=== PATIENT | female | born 1940 | race Caucasian/White ===

== ENCOUNTER 2016-09-08 14:26 | Observation (INO) | payer MEDICARE, OTHER ==
--- NOTE | 2016-09-08 15:06 | C.PDOC ---
History Of Present Illness 75 year old female brought in by family to ER with a complaint of nausea, vomiting, headache, abdominal pain and chest pressure since approximately 14: 00. Patient states symptoms feels similar to when she had an [facility] in January 2016. She denies SOB, fever, cough, palpitations, or diarrhea. Time Seen by Provider: 09/08/16 14:46 Chief Complaint (Nursing): Abdominal Pain History Per: Patient, Family History/Exam Limitations: no limitations Onset/Duration Of Symptoms: Hrs (Since 14:00) Current Symptoms Are (Timing): Better Severity: Moderate Location Of Pain/Discomfort: Other (Abdominal pain) Quality Of Discomfort: "Pain" Associated Symptoms: Nausea, Vomiting, Diarrhea Past Medical History Reviewed: Historical Data, Nursing Documentation, Vital Signs Vital Signs: Last Vital Signs Temp 98.3 F 09/11/16 08:35 Pulse 65 09/11/16 08:46 Resp 20 09/11/16 08:35 BP 127/70 09/11/16 08:35 Pulse Ox 99 09/14/16 10:52 - Medical History PMH: Anemia, Arthritis, Dementia, HTN, Hypercholesterolemia Surgical History: [facility] CORONAR ARTERIOGR-2 CATH (02/10/15) INSERTION OF ONE VASCULAR STENT (02/10/15) INSRT OF DRUG-ELUTING CORON ARTERY STENTS(S) (02/10/15) LEFT HEART CARDIAC CATH (02/10/15) LT HEART ANGIOCARDIOGRAM (02/10/15) PERCUTANEOUS TRANSLUMINAL CORONARY ANGIOPLASTY [PTCA] (02/10/15) PROCEDURE ON SINGLE VESSEL (02/10/15) Family History: States: No Known Family Hx - Social History Hx Alcohol Use: No Hx Substance Use: No - Immunization History Hx Tetanus Toxoid Vaccination: (unk) Hx Influenza Vaccination: No Hx Pneumococcal Vaccination: Yes Review Of Systems Except As Marked, All Systems Reviewed And Found Negative. Cardiovascular: Positive for: Chest Pain (Pressure). Negative for: Palpitations Respiratory: Negative for: Cough, Shortness of Breath Gastrointestinal: Positive for: Nausea, Vomiting, Other (Abdominal Pain) Neurological: Positive for: Headache Physical Exam - Physical Exam Appears: Non-toxic, Other (Mildly uncomfortable, speaking in full sentences.) Skin: Normal Color, Warm, Dry, No Rash Head: Normacephalic Oral Mucosa: Moist Chest: Symmetrical, No Tenderness Cardiovascular: Rhythm Regular Respiratory: Normal Breath Sounds, No Rales, No Rhonchi, Wheezing Gastrointestinal/Abdominal: Normal Exam, Bowel Sounds, Soft, No Tenderness Neurological/Psych: Oriented x3, Normal Speech, Normal Cognition, Normal Cranial Nerves, No Cerebellar Signs, Normal Motor, Normal Sensation ED Course And Treatment - Laboratory Results Result Diagrams: 09/11/16 06:30 09/11/16 06:47 ECG: Interpreted By Me, Viewed By Me (NSR 64 bpm, left axis deication, occasional PVCs, no acute ST/T wave changes) ECG Interpretation: No Acute Changes Interpretation Of ECG: Left axis deviation, Occasional PVCs, no acute ST/T wave changes. Rate From EC O2 Sat by Pulse Oximetry: 99 (Room air) Pulse Ox Interpretation: Normal - Radiology CXR: Interpreted by Me, Viewed By Me (no infiltrates/effusions) Progress Note: Blood work, EKG, and CXR ordered and reviewed. Patient given PO ASA. - Physician Consult Information Physician Contacted: Trent Britton Outcome Of Conversation: Spoke with hospitalist, agrees with admission to his service for chest pain, nausea/vomiting, r/o ACS. Consult for patient's group president Dr. Joe entered. Disposition - Disposition Disposition: HOSPITALIZED Disposition Time: 16:38 Condition: STABLE - Clinical Impression Clinical Impression: Chest pain, Nausea, Vomiting - Scribe Statement The provider has reviewed the documentation as recorded by the Scribpam Holcomb All medical record entries made by the Scribe were at my direction and personally dictated by me. I have reviewed the chart and agree that the record accurately reflects my personal performance of the history, physical exam, medical decision making, and the department course for this patient. I have also personally directed, reviewed, and agree with the discharge instructions and disposition. Decision To Admit - Pt Status Changed To: Hospital Disposition Of: Inpatient - Admit Certification Admit to Inpatient:: After my assessment, the patient will require hospitalization for at least two midnights. This is because of the severity of symptoms shown, intensity of services needed, and/or the medical risk in this patient being treated as an outpatient. - InPatient: Physician Admission Certification:: see notes - . Bed Request Type: Telemetry Admitting Physician: Trent Britton Patient Diagnosis: Chest pain, Nausea, Vomiting
[2016-09-08 15:16] LABS: BASO % 0.5 % (0.0-2.0); EOS # 0.1 K/uL (0.0-0.7); EOS % 1.4 % (0.0-4.0); HEMATOCRIT 34.4 % (34.0-47.0); LYMPH # 0.8 K/uL (1.0-4.3); LYMPH % 13.4 % (20.0-40.0); MEAN CORPUSCULAR HEMOGLOBIN 26.6 pg (27.0-31.0); MEAN CORPUSCULAR HGB CONC 32.1 g/dL (33.0-37.0); MEAN PLATELET VOLUME 7.8 fL (7.2-11.7); MONO # 0.3 K/uL (0.0-0.8); RED CELL DISTRIBUTION WIDTH 15.9 % (11.5-14.5); WHITE BLOOD COUNT 6.3 K/uL (4.8-10.8)
[2016-09-08 15:18] LABS: MEAN CELL VOLUME 82.7 fL (81.0-99.0)
[2016-09-08 15:24] LABS: CHLORIDE 101 mmol/L (98-107)
[2016-09-08 15:25] LABS: SODIUM 138 mmol/L (132-148)
[2016-09-08 15:27] LABS: ALB/GLOB RATIO 1.3 (1.0-2.1); AST/SGOT 25 U/L (14-36); BILIRUBIN,TOTAL 0.3 mg/dL (0.2-1.3); CARBON DIOXIDE 24 mmol/L (22-30); GFR AFRICAN-AMERICAN > 60; TOTAL PROTEIN 7.1 g/dL (6.3-8.3)
[2016-09-08 15:28] LABS: ALKALINE PHOSPHATASE 92 U/L (38-126); BLOOD UREA NITROGEN 14 mg/dL (7-17); CALCIUM 8.4 mg/dl (8.6-10.4); GLUCOSE,RANDOM 96 mg/dL (65-105)
[2016-09-08 15:29] LABS: ALT/SGPT < 6 U/L (9-52)
--- NOTE | 2016-09-08 17:36 | RAD ---
PROCEDURE: CHEST RADIOGRAPH, 1 VIEW HISTORY: cp COMPARISON: 11/21/2015 FINDINGS: LUNGS: Poor inspiration with low lung volumes, crowded bronchovascular markings and mild bibasilar atelectasis. PLEURA: No pneumothorax or pleural fluid seen. CARDIOVASCULAR: Questionable calcification over the left cardiac silhouette. Cardiomegaly. OSSEOUS STRUCTURES: DJD both shoulder girdles. Degenerative spondylosis lower cervical spine VISUALIZED UPPER ABDOMEN: Normal. OTHER FINDINGS: None. IMPRESSION: Poor inspiration with low lung volumes, 1st the the the the crowded bronchovascular markings and mild bibasilar atelectasis.
--- NOTE | 2016-09-08 17:44 | CP.PCM.HP ---
<Angy Burnett - Last Filed: 09/08/16 18:14> History of Present Illness - History of Present Illness History of Present Illness: CC - "Chest pain now resolved" HPI - Patient is a 75 year old female brought in by family to ER with a complaint of nausea, vomiting, headache, abdominal pain and chest pressure since approximately 14:00. She states that it started around 2 PM while she was cleaning in her house. She reports that this pain was midsternal 8/10 radiating to her neck. She admits to associated nausea and vomiting one time that was dark because she was drinking coffee. She states that it resolved in about an hour after she arrived to the ED. She took Aspirin 81 mg at home for the pain which is one of her daily medications. She reports having an KS in January [address] Joe put in a stent. Her last visit with him was 3 weeks ago and she reports everything was "fine". She admits to a headache for the past few days but denies visual changes. She denies fever chills, palpitations, SOB, abd pain, diarrhea, constipation, urinary complaints, weakness/numbness, or dizziness. She can walk up 2 flights of stairs without getting SOB and does not use any extra pillows while sleeping. PMHx - KS (Jan 2015), Anemia, Arthritis, Dementia, HTN, HLD Meds - Aspirin 81 mg PO daily Plavix 75 mg PO daily Metoprolol 25 mg PO daily Amlodipine 10mg PO daily Crestor 10 mg PO HS Donepezil 10mg PO daily Meloxicam 15mg PO daily Lyrica 25mg PO TID alendronate 70 mg PO weekly at home Tradozone 50mg PO HS Protonix 40mg PO daily Tizanidine 2mg PO daily Vitamin D 1.25 mg PO weekly [place] 3 two PO daily Allergies - NKDA Surg - Csection Fam Hx - mother had KS, no hisotry of DM, stroke or cancer Social - used to smokes since a young age and used 3-4 cigarettes a day, quit 3 years ago, admits to occasional alcohol use, denies drug use, lives at home with her daughter and son in law PMD - [employer] - Heath Present on Admission - Present on Admission Any Indicators Present on Admission: No Review of Systems - Constitutional Constitutional: Headache. absent: Chills, Fever, Weakness - EENT Eyes: absent: Blurred Vision, Change in Vision Ears: Dizziness Nose/Mouth/Throat: absent: Nasal Congestion, Nasal Discharge - Cardiovascular Cardiovascular: Chest Pain, Chest Pain at Rest, Pain Radiating to Arm/Neck/Jaw. absent: Diaphoresis, Leg Edema, Palpitations, Syncope Additional comments: have resolved, non reproducible - Respiratory Respiratory: absent: Cough, Dyspnea, Dyspnea on Exertion - Gastrointestinal Gastrointestinal: Nausea, Vomiting. absent: Abdominal Pain Additional comments: x 1, resolved - Genitourinary Genitourinary: absent: Change in Urinary Stream, Difficulty Urinating - Musculoskeletal Musculoskeletal: Arthralgias, Deformity. absent: Numbness, Tingling Additional comments: joints in hands Past Patient History - Infectious Disease Hx of Infectious Diseases: None - Past Medical History & Family History Past Medical History?: Yes - Past Social History Smoking Status: Former Smoker - CARDIAC Hx Hypercholesterolemia: Yes Hx Hypertension: Yes - PULMONARY Hx Respiratory Disorders: No - NEUROLOGICAL Hx Dementia: Yes - HEENT Hx Cataracts: Yes - RENAL Hx Chronic Kidney Disease: No - ENDOCRINE/METABOLIC Hx Endocrine Disorders: No - HEMATOLOGICAL/ONCOLOGICAL Hx Anemia: Yes - INTEGUMENTARY Hx Dermatological Problems: No - MUSCULOSKELETAL/RHEUMATOLOGICAL Hx Arthritis: Yes - GASTROINTESTINAL Hx Gastrointestinal Disorders: Yes Hx Gastroesophageal Reflux: Yes - GENITOURINARY/GYNECOLOGICAL Hx Genitourinary Disorders: No - PSYCHIATRIC Hx Substance Use: No - SURGICAL HISTORY Hx Coronary Stent: Yes (proximal RCA 2006) - ANESTHESIA Hx Anesthesia: Yes Hx Anesthesia Reactions: No Hx Malignant Hyperthermia: No Meds Allergies/Adverse Reactions: Allergies Allergy/AdvReac Type Severity Reaction Status Date / Time No Known Allergies Allergy Verified 11/21/15 15:38 Physical Exam - Constitutional Appears: Non-toxic, No Acute Distress - Head Exam Head Exam: ATRAUMATIC, NORMAL INSPECTION - Eye Exam Eye Exam: EOMI, Normal appearance, PERRL Pupil Exam: NORMAL ACCOMODATION - ENT Exam ENT Exam: Mucous Membranes Moist - Respiratory Exam Respiratory Exam: Clear to Auscultation Bilateral, NORMAL BREATHING PATTERN. absent: Accessory Muscle Use, Chest Wall Tenderness, Respiratory Distress - Cardiovascular Exam Cardiovascular Exam: REGULAR RHYTHM, +S1, +S2. absent: Diastolic murmur, Systolic Murmur Additional comments: non reproducible, has resolved - GI/Abdominal Exam GI & Abdominal Exam: Normal Bowel Sounds, Soft. absent: Distended, Firm, Guarding, Tenderness - Extremities Exam Extremities exam: Positive for: joint swelling, normal inspection, pedal pulses present. Negative for: calf tenderness, pedal edema Additional comments: arthritic changes in finger joints b/l - Back Exam Back exam: NORMAL INSPECTION. absent: CVA tenderness (L), CVA tenderness (R), paraspinal tenderness - Neurological Exam Neurological exam: Alert, CN II-XII Intact, Oriented x3 - Psychiatric Exam Psychiatric exam: Normal Affect, Normal Mood - Skin Skin Exam: Intact, Normal Color, Warm Results - Vital Signs Recent Vital Signs: Last Vital Signs Temp 97.7 F 09/08/16 14:39 Pulse 67 09/08/16 14:39 Resp 14 09/08/16 15:18 BP 147/72 09/08/16 14:39 Pulse Ox 99 09/08/16 16:42 - Labs Result Diagrams: 09/08/16 15:12 09/08/16 15:12 Assessment & Plan - Assessment and Plan (Free Text) Assessment: Angina rule out M/I - previous KS In January of 2015 with stenet placement in RCA by Dr. Joe Aspirin 81 mg PO daily Plavix 75 mg PO daily Metoprolol 25 mg PO daily Trop #1 negative, monitor with serial troponins and EKGs EKG NSR with left axis deviation, occasional PVCS, no acute changes Chest X ray - cardiomegaly, no acitve diease but poor inspiration with low lung volumes, mild bibasilar atelectasis Dr. Joe consulted, help appreciated BNP 715 f/u Echo f/u am labs, HbA1c, TSH, lipid panel Hypertension Controlled Amlodipine 10mg PO daily Metoprolol 25 mg PO daily Monitor BP Hyperlipidemia Crestor 10 mg PO HS f/u lipid panel Hx Anemia Chronic Hgb 11.0 Monitor Dementia Continue Donepezil 10mg PO daily Arthritis Continue Meloxicam 15mg PO daily Lyrica 25mg PO TID On alendronate 70 mg PO weekly at home Insomnia Tradozone 50mg PO HS Prophylactic Measures Protonix 40mg PO daily SCDs Lovenox 40mg SC daily Heart healthy low sodium diet <Trent Britton H - Last Filed: 09/09/16 11:10> Results - Vital Signs Recent Vital Signs: Last Vital Signs Temp 98 F 09/09/16 10:12 Pulse 62 09/09/16 10:12 Resp 18 09/09/16 10:12 BP 136/65 09/09/16 10:12 Pulse Ox 97 09/09/16 10:12 - Labs Result Diagrams: 09/09/16 07:56 09/09/16 07:56 Labs: Laboratory Results - last 24 hr 09/09/16 09/09/16 00:18 07:56 WBC 5.4 RBC 4.23 Hgb 11.3 Hct 35.5 MCV 83.9 MCH 26.6 L MCHC 31.8 L RDW 16.2 H Plt Count 264 MPV 8.5 Neut % (Auto) 62.6 Lymph % (Auto) 25.5 [place] % (Auto) 8.2 Eos % (Auto) 2.9 Baso % (Auto) 0.8 Neut # 3.4 Lymph # 1.4 [place] # 0.4 Eos # 0.2 Baso # 0.0 Sodium 141 Potassium 3.9 Chloride 103 Carbon Dioxide 24 Anion Gap 18 BUN 15 Creatinine 0.9 Est GFR ( Amer) > 60 Est GFR (Non-Af Amer) > 60 Random Glucose 90 Calcium 8.5 L Phosphorus 3.9 Magnesium 2.0 Total Bilirubin 0.1 L AST 22 ALT < 6 L Alkaline Phosphatase 85 Total Creatine Kinase 105 91 CK-MB (Mass) 0.77 0.69 Troponin I, Quant < 0.0120 < 0.0120 Total Protein 6.8 Albumin 3.8 Globulin 3.1 Albumin/Globulin Ratio 1.2 Triglycerides 170 H D Cholesterol 129 LDL Cholesterol Direct 49 HDL Cholesterol 48 Free T4 1.18 TSH 3rd Generation 1.37 Attending/Attestation - Attestation I have personally seen and examined this patient.: Yes I have fully participated in the care of the patient.: Yes I have reviewed all pertinent clinical information: Yes Notes (Text): Medical Attending: Patient was seen in the ER with medical surgery nurse. Agree with the above note by the resident. The patient does have a cardiac history and is on plavix as well as statin and HTN medications. Family members were present at bedside as well. Will check further cardiac enzymes as well as repeat EKG, also an order for an echo as well. Also cardiology evaluation as well. Patient does seem to have some dementia as well, family was helping with translation and answering questions as well.
[2016-09-09 08:08] LABS: BASO % 0.8 % (0.0-2.0); EOS # 0.2 K/uL (0.0-0.7); EOS % 2.9 % (0.0-4.0); HEMATOCRIT 35.5 % (34.0-47.0); LYMPH # 1.4 K/uL (1.0-4.3); LYMPH % 25.5 % (20.0-40.0); MEAN CELL VOLUME 83.9 fL (81.0-99.0); MEAN CORPUSCULAR HEMOGLOBIN 26.6 pg (27.0-31.0); MEAN CORPUSCULAR HGB CONC 31.8 g/dL (33.0-37.0); MEAN PLATELET VOLUME 8.5 fL (7.2-11.7); MONO # 0.4 K/uL (0.0-0.8); MONO % 8.2 % (0.0-10.0); RED CELL DISTRIBUTION WIDTH 16.2 % (11.5-14.5); WHITE BLOOD COUNT 5.4 K/uL (4.8-10.8)
[2016-09-09 08:17] LABS: CHLORIDE 103 mmol/L (98-107)
[2016-09-09 08:18] LABS: POTASSIUM 3.9 mmol/L (3.6-5.2); SODIUM 141 mmol/L (132-148)
[2016-09-09 08:19] LABS: CHOLESTEROL 129 mg/dL (0-199); GFR AFRICAN-AMERICAN > 60
[2016-09-09 08:20] LABS: ALB/GLOB RATIO 1.2 (1.0-2.1); ALKALINE PHOSPHATASE 85 U/L (38-126); AST/SGOT 22 U/L (14-36); BILIRUBIN,TOTAL 0.1 mg/dL (0.2-1.3); BLOOD UREA NITROGEN 15 mg/dL (7-17); CARBON DIOXIDE 24 mmol/L (22-30); GLUCOSE,RANDOM 90 mg/dL (65-105); TOTAL PROTEIN 6.8 g/dL (6.3-8.3)
[2016-09-09 08:21] LABS: CALCIUM 8.5 mg/dl (8.6-10.4); PHOSPHOROUS 3.9 mg/dL (2.5-4.5)
[2016-09-09 08:26] LABS: ALT/SGPT < 6 U/L (9-52)
[2016-09-09 09:32] LABS: THYROID STIMULATING HORMONE 1.37 mIU/L (0.46-4.68)
[2016-09-09] MEDS ORDERED: TIMOLOL OP SCH (10:00)
[2016-09-09] MEDS ORDERED: BRIMONIDINE TARTRATE OP SCH (10:00)
[2016-09-09] MEDS ORDERED: Home Med 1 UNIT (Omeprazole [Omeprazole] 40 MG) PO SCH (10:00)
[2016-09-09] MEDS ORDERED: Home Med 1 UNIT (Alendronate [Fosamax] 70 MG) PO SCH (10:00)
[2016-09-09] MEDS ORDERED: Home Med 1 UNIT (Meloxicam [Mobic] 15 MG) PO SCH (10:00)
[2016-09-09] MEDS ORDERED: Home Med 1 UNIT (Tizanidine [Zanaflex] 2 MG) PO SCH (10:00)
[2016-09-09] MEDS ORDERED: Enoxaparin 40 mg Syringe SC SCH (10:00)
[2016-09-09] MEDS: Metoprolol Succinate 25 mg XL Tab PO SCH (10:14)
--- NOTE | 2016-09-09 11:31 | CP.PCM.CON ---
History of Present Illness - History of Present Illness History of Present Illness: I was asked to see patient by the hospitalist service. Patient is a 75 year old male female with a PMH HTN, CAD s/p LA and PCI RCA, hypercholeterolemia, anemia who presents with chest pain. The patient states symptoms began yesterday at 2pm. She was noted to have substernal chest pressure and burning. Symptoms were intermittent. The patient had associated abdominal pain and nausea. The patient denies chest coombs currently. Cardiac enzymes have been negative. Review of Systems - Constitutional Constitutional: absent: As Per HPI, Anorexia, Chills, Daytime Sleepiness, Excessive Sweating, Fatigue, Fever, Frequent Falls, Headache, Increased Appetite , Lethargy, Malaise, Night Sweats, Snoring, Sleep Apnea, Weight Gain, Weight Loss, Weakness, Other - EENT Eyes: absent: As Per HPI, Blind Spots, Blurred Vision, Change in Vision, Decreased Night Vision, Diplopia, Discharge, Dry Eye, Exophthalmos, Floaters, Irritation, Itchy Eyes, Loss of Peripheral Vision, Pain, Photophobia, Requires Corrective Lenses, Sees Flashes, Spots in Vision, Tunnel Vision, Other Visual Disturbances, Loss of Vision, Other Ears: absent: As Per HPI, Decreased Hearing, Ear Discharge, Ear Pain, Tinnitus, Abnormal Hearing, Disequilibrium, Dizziness, Other Nose/Mouth/Throat: absent: As Per HPI, Epistaxis, Nasal Congestion, Nasal Discharge, Nasal Obstruction, Nasal Trauma, Nose Pain, Post Nasal Drip, Sinus Pain, Sinus Pressure, Bleeding Gums, Change in Voice, Dental Pain, Dry Mouth, Dysphagia, Halitosis, Hoarsness, Lip Swelling, Mouth Lesions, Mouth Pain, Odynophagia, Sore Throat, Throat Swelling, Tongue Swelling, Facial Pain, Neck Pain, Neck Mass, Other - Breasts Breasts: absent: As Per HPI, Change in Shape, Mass, Pain, Nipple Discharge, Nipple Inversion, Skin Changes, Swelling, Other - Cardiovascular Cardiovascular: Chest Pain, Dyspnea - Respiratory Respiratory: absent: As Per HPI, Cough, Dyspnea, Hemoptysis, Dyspnea on Exertion , Wheezing, Snoring, Stridor, Pain on Inspiration, Chest Congestion, Excessive Mucous Production, Change in Mucous Color, Pain with Coughing, Other - Gastrointestinal Gastrointestinal: Abdominal Pain - Genitourinary Genitourinary: absent: As Per HPI, Change in Urinary Stream, Difficulty Urinating, Dysuria, Flank Pain, Hematuria, Pyuria, Nocturia, Urinary Incontinence, Urinary Frequency, Urinary Hesitance, Urinary Urgency, Voiding Freq/Small Amts, Freq UTI, Hx Renal/Bladder Calculi, Hx /Renal Surgery, Bladder Distension, Other - Musculoskeletal Musculoskeletal: absent: As Per HPI, Abnormal Gait, Arthralgias, Atrophy, Back Pain, Deformity, Joint Swelling, Limited Range of Motion, Loss of Height, Muscle Cramps, Muscle Weakness, Myalgias, Neck Pain, Numbness, Radiating Pain into Limb, Stiffness, Tingling, Other - Integumentary Integumentary: absent: As Per HPI, Acne, Alopecia, Bleeding Lesions, Change in Hair, Change in Nails, Change in Pigmentation, Changing Lesions, Dry Skin, Erythema, Furuncle, Hirsutism, Lesions, New Lesions, Non-Healing Lesions, Photosensitivity, Pruritus, Rash, Skin Pain, Skin Ulcer, Sores, Striae, Swelling , Unusual Bruising, Wounds, Jaundice, Other - Neurological Neurological: absent: As Per HPI, Abnormal Gait, Abnormal Hearing, Abnormal Movements, Abnormal Speech, Behavioral Changes, Burning Sensations, Confusion, Convulsions, Disequilibrium, Dizziness, Numbness, Focal Weakness, Frequent Falls , Headaches, Lack of Coordination, Loss of Vision, Memory Loss, Paresthesias, Radicular Pain, Restless Legs, Sensory Deficit, Syncope, Tingling, Tremor, Vertigo, Weakness, Other Visual Disturbances, Other - Psychiatric Psychiatric: absent: As Per HPI, Abnormal Sleep Pattern, Anhedonia, Anxiety, Auditory Hallucinations, Behavioral Changes, Change in Appetite, Change in Libido, Confusion, Depression, Difficulty Concentrating, Hallucinations, Homicidal Ideation, Hopelessness, Irritability, Memory Loss, Mood Swings, Panic Attacks, Paranoia, Suicidal Ideation, Visual Hallucinations, Tactile Hallucinations, Other - Endocrine Endocrine: absent: As Per HPI, Change in Body Appearance, Change in Libido, Cold Intolorance, Deepening of Voice, Excessive Sweating, Fatigue, Flushing, Heat Intolorance, Increase in Ring/Shoe/Hat Size, Palpitations, Polydipsia, Polyphagia, Polyuria, Other - Hematologic/Lymphatic Hematologic: absent: As Per HPI, Easy Bleeding, Easy Bruising, Lymphadenopathy, Other Past Patient History - Infectious Disease Hx of Infectious Diseases: None - Past Medical History & Family History Past Medical History?: Yes - Past Social History Smoking Status: Former Smoker - CARDIAC Hx Hypercholesterolemia: Yes Hx Hypertension: Yes - PULMONARY Hx Respiratory Disorders: No - NEUROLOGICAL Hx Dementia: Yes - HEENT Hx Cataracts: Yes - RENAL Hx Chronic Kidney Disease: No - ENDOCRINE/METABOLIC Hx Endocrine Disorders: No - HEMATOLOGICAL/ONCOLOGICAL Hx Anemia: Yes - INTEGUMENTARY Hx Dermatological Problems: No - MUSCULOSKELETAL/RHEUMATOLOGICAL Hx Arthritis: Yes Hx Falls: No - GASTROINTESTINAL Hx Gastrointestinal Disorders: Yes Hx Gastroesophageal Reflux: Yes - GENITOURINARY/GYNECOLOGICAL Hx Genitourinary Disorders: No - PSYCHIATRIC Hx Substance Use: No - SURGICAL HISTORY Hx Surgeries: Yes Hx Coronary Stent: Yes (proximal RCA 2006) - ANESTHESIA Hx Anesthesia: Yes Hx Anesthesia Reactions: No Hx Malignant Hyperthermia: No Meds Allergies/Adverse Reactions: Allergies Allergy/AdvReac Type Severity Reaction Status Date / Time No Known Allergies Allergy Verified 11/21/15 15:38 - Medications Medications: Current Medications Acetaminophen (Tylenol 325mg Tab) 650 mg PO Q6 PRN PRN Reason: Headache Last Admin: 09/08/16 20:55 Dose: 650 mg Amlodipine Besylate (Norvasc) 10 mg PO DAILY [facility] Last Admin: 09/09/16 10:14 Dose: 10 mg Aspirin (Aspirin Chewable) 81 mg PO DAILY [facility] Last Admin: 09/09/16 10:14 Dose: 81 mg Clopidogrel Bisulfate (Plavix) 75 mg PO DAILY [facility] Last Admin: 09/09/16 10:14 Dose: 75 mg Donepezil HCl (Aricept) 10 mg PO DAILY [facility] Last Admin: 09/09/16 10:14 Dose: 10 mg Famotidine (Pepcid) 20 mg PO DAILY [facility] Last Admin: 09/09/16 10:14 Dose: 20 mg Metoprolol Succinate (Toprol Xl) 25 mg PO DAILY [facility] Last Admin: 09/09/16 10:14 Dose: 25 mg Pregabalin (Lyrica) 25 mg PO DAILY [facility] Last Admin: 09/09/16 10:14 Dose: 25 mg Rosuvastatin Calcium (Crestor) 10 mg PO [facility] Last Admin: 09/08/16 21:50 Dose: 10 mg Trazodone HCl (Desyrel) 50 mg PO [facility] Last Admin: 09/08/16 21:50 Dose: 50 mg Physical Exam - Constitutional Appears: Non-toxic - Head Exam Head Exam: NORMAL INSPECTION - Eye Exam Eye Exam: Normal appearance - ENT Exam ENT Exam: Mucous Membranes Moist - Neck Exam Neck exam: Positive for: Full Rom - Respiratory Exam Respiratory Exam: NORMAL BREATHING PATTERN - Cardiovascular Exam Cardiovascular Exam: REGULAR RHYTHM - GI/Abdominal Exam GI & Abdominal Exam: Normal Bowel Sounds - Rectal Exam Rectal Exam: Deferred - Extremities Exam Extremities exam: Positive for: pedal edema - Back Exam Back exam: NORMAL INSPECTION - Neurological Exam Neurological exam: Alert, Oriented x3 - Psychiatric Exam Psychiatric exam: Normal Affect - Skin Skin Exam: Normal Color Results - Vital Signs Recent Vital Signs: Last Vital Signs Temp 98 F 09/09/16 10:12 Pulse 62 09/09/16 10:12 Resp 18 09/09/16 10:12 BP 136/65 09/09/16 10:12 Pulse Ox 97 09/09/16 10:12 - Labs Result Diagrams: 09/09/16 07:56 09/09/16 07:56 Labs: Laboratory Results - last 24 hr 09/09/16 09/09/16 00:18 07:56 WBC 5.4 RBC 4.23 Hgb 11.3 Hct 35.5 MCV 83.9 MCH 26.6 L MCHC 31.8 L RDW 16.2 H Plt Count 264 MPV 8.5 Neut % (Auto) 62.6 Lymph % (Auto) 25.5 [place] % (Auto) 8.2 Eos % (Auto) 2.9 Baso % (Auto) 0.8 Neut # 3.4 Lymph # 1.4 [place] # 0.4 Eos # 0.2 Baso # 0.0 Sodium 141 Potassium 3.9 Chloride 103 Carbon Dioxide 24 Anion Gap 18 BUN 15 Creatinine 0.9 Est GFR ( Amer) > 60 Est GFR (Non-Af Amer) > 60 Random Glucose 90 Calcium 8.5 L Phosphorus 3.9 Magnesium 2.0 Total Bilirubin 0.1 L AST 22 ALT < 6 L Alkaline Phosphatase 85 Total Creatine Kinase 105 91 CK-MB (Mass) 0.77 0.69 Troponin I, Quant < 0.0120 < 0.0120 Total Protein 6.8 Albumin 3.8 Globulin 3.1 Albumin/Globulin Ratio 1.2 Triglycerides 170 H D Cholesterol 129 LDL Cholesterol Direct 49 HDL Cholesterol 48 Free T4 1.18 TSH 3rd Generation 1.37 - EKG Data EKG Interpreted by: Myself EKG shows normal: Sinus rhythm Assessment & Plan (1) HTN (hypertension) Assessment and Plan: blood pressure control Status: Chronic (2) Angina at rest Assessment and Plan: patient has high risk symptoms given previous history. I will schedule stress test as inpatient. Status: Acute (3) Hypercholesteremia Assessment and Plan: statin therapy. goal LDL<100 Status: Acute
--- NOTE | 2016-09-09 12:18 | CP.PCM.PN ---
Objective - Vital Signs/Intake and Output Vital Signs (last 24 hours): Temp Pulse Resp BP Pulse Ox 98 F 62 18 136/65 97 09/09/16 10:12 09/09/16 10:12 09/09/16 10:12 09/09/16 10:12 09/09/16 10:12 - Medications Medications: Current Medications Acetaminophen (Tylenol 325mg Tab) 650 mg PO Q6 PRN PRN Reason: Headache Last Admin: 09/08/16 20:55 Dose: 650 mg Amlodipine Besylate (Norvasc) 10 mg PO DAILY [facility] Last Admin: 09/09/16 10:14 Dose: 10 mg Aspirin (Aspirin Chewable) 81 mg PO DAILY [facility] Last Admin: 09/09/16 10:14 Dose: 81 mg Clopidogrel Bisulfate (Plavix) 75 mg PO DAILY [facility] Last Admin: 09/09/16 10:14 Dose: 75 mg Donepezil HCl (Aricept) 10 mg PO DAILY [facility] Last Admin: 09/09/16 10:14 Dose: 10 mg Famotidine (Pepcid) 20 mg PO DAILY [facility] Last Admin: 09/09/16 10:14 Dose: 20 mg Metoprolol Succinate (Toprol Xl) 25 mg PO DAILY [facility] Last Admin: 09/09/16 10:14 Dose: 25 mg Pregabalin (Lyrica) 25 mg PO DAILY [facility] Last Admin: 09/09/16 10:14 Dose: 25 mg Rosuvastatin Calcium (Crestor) 10 mg PO HS [facility] Last Admin: 09/08/16 21:50 Dose: 10 mg Trazodone HCl (Desyrel) 50 mg PO HS [facility] Last Admin: 09/08/16 21:50 Dose: 50 mg - Labs Labs: 09/09/16 07:56 09/09/16 07:56 PT 11.7 SECONDS (9.7-12.2) 09/08/16 15:12 INR 1.0 09/08/16 15:12 APTT 30 SECONDS (21-34) 09/08/16 15:12
--- NOTE | 2016-09-09 12:21 | CP.PCM.PN ---
Objective - Vital Signs/Intake and Output Vital Signs (last 24 hours): Temp Pulse Resp BP Pulse Ox 98 F 62 18 136/65 97 09/09/16 10:12 09/09/16 10:12 09/09/16 10:12 09/09/16 10:12 09/09/16 10:12 - Medications Medications: Current Medications Acetaminophen (Tylenol 325mg Tab) 650 mg PO Q6 PRN PRN Reason: Headache Last Admin: 09/08/16 20:55 Dose: 650 mg Amlodipine Besylate (Norvasc) 10 mg PO DAILY [facility] Last Admin: 09/09/16 10:14 Dose: 10 mg Aspirin (Aspirin Chewable) 81 mg PO DAILY [facility] Last Admin: 09/09/16 10:14 Dose: 81 mg Clopidogrel Bisulfate (Plavix) 75 mg PO DAILY [facility] Last Admin: 09/09/16 10:14 Dose: 75 mg Donepezil HCl (Aricept) 10 mg PO DAILY [facility] Last Admin: 09/09/16 10:14 Dose: 10 mg Famotidine (Pepcid) 20 mg PO DAILY [facility] Last Admin: 09/09/16 10:14 Dose: 20 mg Metoprolol Succinate (Toprol Xl) 25 mg PO DAILY [facility] Last Admin: 09/09/16 10:14 Dose: 25 mg Pregabalin (Lyrica) 25 mg PO DAILY [facility] Last Admin: 09/09/16 10:14 Dose: 25 mg Rosuvastatin Calcium (Crestor) 10 mg PO HS [facility] Last Admin: 09/08/16 21:50 Dose: 10 mg Trazodone HCl (Desyrel) 50 mg PO HS [facility] Last Admin: 09/08/16 21:50 Dose: 50 mg - Labs Labs: 09/09/16 07:56 09/09/16 07:56 PT 11.7 SECONDS (9.7-12.2) 09/08/16 15:12 INR 1.0 09/08/16 15:12 APTT 30 SECONDS (21-34) 09/08/16 15:12
--- NOTE | 2016-09-09 13:39 | CP.PCM.PN ---
Objective - Vital Signs/Intake and Output Vital Signs (last 24 hours): Temp Pulse Resp BP Pulse Ox 98.1 F 64 20 135/70 97 09/09/16 13:20 09/09/16 13:20 09/09/16 13:20 09/09/16 13:20 09/09/16 13:20 - Medications Medications: Current Medications Acetaminophen (Tylenol 325mg Tab) 650 mg PO Q6 PRN PRN Reason: Headache Last Admin: 09/08/16 20:55 Dose: 650 mg Amlodipine Besylate (Norvasc) 10 mg PO DAILY [facility] Last Admin: 09/09/16 10:14 Dose: 10 mg Aspirin (Aspirin Chewable) 81 mg PO DAILY [facility] Last Admin: 09/09/16 10:14 Dose: 81 mg Clopidogrel Bisulfate (Plavix) 75 mg PO DAILY [facility] Last Admin: 09/09/16 10:14 Dose: 75 mg Donepezil HCl (Aricept) 10 mg PO DAILY [facility] Last Admin: 09/09/16 10:14 Dose: 10 mg Famotidine (Pepcid) 20 mg PO DAILY [facility] Last Admin: 09/09/16 10:14 Dose: 20 mg Metoprolol Succinate (Toprol Xl) 25 mg PO DAILY [facility] Last Admin: 09/09/16 10:14 Dose: 25 mg Ondansetron HCl (Zofran Inj) 4 mg IVP Q6H PRN PRN Reason: Nausea/Vomiting Pregabalin (Lyrica) 25 mg PO DAILY [facility] Last Admin: 09/09/16 10:14 Dose: 25 mg Rosuvastatin Calcium (Crestor) 10 mg PO HS [facility] Last Admin: 09/08/16 21:50 Dose: 10 mg Trazodone HCl (Desyrel) 50 mg PO HS [facility] Last Admin: 09/08/16 21:50 Dose: 50 mg - Labs Labs: 09/09/16 07:56 09/09/16 07:56 PT 11.7 SECONDS (9.7-12.2) 09/08/16 15:12 INR 1.0 09/08/16 15:12 APTT 30 SECONDS (21-34) 09/08/16 15:12
--- NOTE | 2016-09-09 15:20 | CP.PCM.PN ---
<KvngcammyMarco hernandezn - Last Filed: 09/09/16 15:17> Subjective - Date & Time of Evaluation Date of Evaluation: 09/09/16 Time of Evaluation: 10:14 - Subjective Subjective: Pt seen and examined. Pt reports that she is feeling better today. Pt complains of slight shortness of breath. Pt also reports nausea. She reports that her chest pain has resolved. Pt denies fever, chills, vomiting, diarrhea. Objective - Vital Signs/Intake and Output Vital Signs (last 24 hours): Temp Pulse Resp BP Pulse Ox 98.1 F 64 20 135/70 97 09/09/16 13:20 09/09/16 13:20 09/09/16 13:20 09/09/16 13:20 09/09/16 13:20 - Medications Medications: Current Medications Acetaminophen (Tylenol 325mg Tab) 650 mg PO Q6 PRN PRN Reason: Headache Last Admin: 09/08/16 20:55 Dose: 650 mg Amlodipine Besylate (Norvasc) 10 mg PO DAILY [facility] Last Admin: 09/09/16 10:14 Dose: 10 mg Aspirin (Aspirin Chewable) 81 mg PO DAILY [facility] Last Admin: 09/09/16 10:14 Dose: 81 mg Clopidogrel Bisulfate (Plavix) 75 mg PO DAILY [facility] Last Admin: 09/09/16 10:14 Dose: 75 mg Donepezil HCl (Aricept) 10 mg PO DAILY [facility] Last Admin: 09/09/16 10:14 Dose: 10 mg Famotidine (Pepcid) 20 mg PO DAILY [facility] Last Admin: 09/09/16 10:14 Dose: 20 mg Metoprolol Succinate (Toprol Xl) 25 mg PO DAILY [facility] Last Admin: 09/09/16 10:14 Dose: 25 mg Ondansetron HCl (Zofran Inj) 4 mg IVP Q6H PRN PRN Reason: Nausea/Vomiting Last Admin: 09/09/16 14:15 Dose: 4 mg Pregabalin (Lyrica) 25 mg PO DAILY [facility] Last Admin: 09/09/16 10:14 Dose: 25 mg Rosuvastatin Calcium (Crestor) 10 mg PO HS [facility] Last Admin: 09/08/16 21:50 Dose: 10 mg Trazodone HCl (Desyrel) 50 mg PO HS [facility] Last Admin: 09/08/16 21:50 Dose: 50 mg - Labs Labs: 09/09/16 07:56 09/09/16 07:56 PT 11.7 SECONDS (9.7-12.2) 09/08/16 15:12 INR 1.0 09/08/16 15:12 APTT 30 SECONDS (21-34) 09/08/16 15:12 - Constitutional Appears: No Acute Distress - Head Exam Head Exam: ATRAUMATIC, NORMOCEPHALIC - Eye Exam Eye Exam: EOMI, PERRL - ENT Exam ENT Exam: Mucous Membranes Moist. absent: Mucous Membranes Dry - Respiratory Exam Respiratory Exam: Clear to Ausculation Bilateral. absent: Rales, Rhonchi, Wheezes - Cardiovascular Exam Cardiovascular Exam: +S1, +S2. absent: Gallop, Rubs - GI/Abdominal Exam GI & Abdominal Exam: Soft. absent: Tenderness - Extremities Exam Extremities Exam: Full ROM. absent: Pedal Edema - Neurological Exam Neurological Exam: Alert, Awake, Oriented x3 - Psychiatric Exam Psychiatric exam: Normal Affect, Normal Mood - Skin Skin Exam: Normal Color, Warm Assessment and Plan - Assessment and Plan (Free Text) Assessment: Angina Troponins negative x 3 Pro-BNP 715 EKG NSR with left axis deviation, occasional PVCS, no acute changes Cardiology, Dr. Joe, consulted. Help appreciated. Aspirin 81 mg PO daily Plavix 75 mg PO daily Metoprolol 25 mg PO daily EKG NSR with left axis deviation, occasional PVCS, no acute changes Chest X ray - cardiomegaly, no active disease but poor inspiration with low lung volumes, mild bibasilar atelectasis Triglycerides - [address] Joe, pt will need inpatient stress test based on cardiac hx and symptoms - plan for salas NPO after midnight Hypertension Amlodipine 10mg PO daily Metoprolol 25 mg PO daily Monitor BP Hyperlipidemia Crestor 10 mg PO HS Triglycerides - 170 Anemia Chronic Hgb 11.0 Monitor Dementia Donepezil 10mg PO daily Arthritis Continue Meloxicam 15mg PO daily Lyrica 25mg PO TID On alendronate 70 mg PO weekly at home Insomnia Tradozone 50mg PO HS Prophylactic Measures GI: Protonix 40mg PO daily DVT: SCDs, Lovenox 40mg SC daily Heart healthy low sodium diet <Trent Britton - Last Filed: 09/09/16 15:47> Objective - Vital Signs/Intake and Output Vital Signs (last 24 hours): Temp Pulse Resp BP Pulse Ox 98.1 F 64 20 135/70 97 09/09/16 13:20 09/09/16 13:20 09/09/16 13:20 09/09/16 13:20 09/09/16 13:20 - Medications Medications: Current Medications Acetaminophen (Tylenol 325mg Tab) 650 mg PO Q6 PRN PRN Reason: Headache Last Admin: 09/08/16 20:55 Dose: 650 mg Amlodipine Besylate (Norvasc) 10 mg PO DAILY [facility] Last Admin: 09/09/16 10:14 Dose: 10 mg Aspirin (Aspirin Chewable) 81 mg PO DAILY [facility] Last Admin: 09/09/16 10:14 Dose: 81 mg Clopidogrel Bisulfate (Plavix) 75 mg PO DAILY [facility] Last Admin: 09/09/16 10:14 Dose: 75 mg Donepezil HCl (Aricept) 10 mg PO DAILY [facility] Last Admin: 09/09/16 10:14 Dose: 10 mg Famotidine (Pepcid) 20 mg PO DAILY [facility] Last Admin: 09/09/16 10:14 Dose: 20 mg Metoprolol Succinate (Toprol Xl) 25 mg PO DAILY [facility] Last Admin: 09/09/16 10:14 Dose: 25 mg Ondansetron HCl (Zofran Inj) 4 mg IVP Q6H PRN PRN Reason: Nausea/Vomiting Last Admin: 09/09/16 14:15 Dose: 4 mg Pregabalin (Lyrica) 25 mg PO DAILY [facility] Last Admin: 09/09/16 10:14 Dose: 25 mg Rosuvastatin Calcium (Crestor) 10 mg PO HS [facility] Last Admin: 09/08/16 21:50 Dose: 10 mg Trazodone HCl (Desyrel) 50 mg PO HS [facility] Last Admin: 09/08/16 21:50 Dose: 50 mg - Labs Labs: 09/09/16 07:56 09/09/16 07:56 PT 11.7 SECONDS (9.7-12.2) 09/08/16 15:12 INR 1.0 09/08/16 15:12 APTT 30 SECONDS (21-34) 09/08/16 15:12 Attending/Attestation - Attestation I have personally seen and examined this patient.: Yes I have fully participated in the care of the patient.: Yes I have reviewed all pertinent clinical information, including history, physical exam and plan: Yes Notes (Text): Medical Attending: Patient was seen and examined by me. Agree with the above note by the resident. The patient's cardiac enzymes returned and were negative. Currently pending an echo Also cardiology is planning on a stress tomorrow as well.
--- NOTE | 2016-09-09 23:29 | CARD ---
APPROVED REPORT EKG Measurement Heart [id number] [place] 160P32 [id number] <Conclusion> Sinus rhythm with occasional premature ventricular complexes ST & T wave abnormality, consider lateral ischemia vs artifacts Abnormal ECG
[2016-09-10] MEDS: Metoprolol Succinate 25 mg XL Tab PO SCH ×2 (06:59→11:11)
--- NOTE | 2016-09-10 07:19 | CP.PCM.PN ---
<Rivera Dacosta - Last Filed: 09/10/16 18:12> Subjective - Date & Time of Evaluation Date of Evaluation: 09/10/16 Time of Evaluation: 09:30 - Subjective Subjective: PGY 1 Medicine Note- Dr. Britton's service Pt seen and examined in no acute distress following stress test. Patient tolerating diet without complaints. She denies chest pain, shortness of breath, palpitations, paresthesias, headaches,nausea, vomiting, diarrhea or constipation at this time. Objective - Vital Signs/Intake and Output Vital Signs (last 24 hours): Temp Pulse Resp BP Pulse Ox 98.3 F 60 20 122/73 99 09/09/16 23:20 09/10/16 06:55 09/09/16 23:20 09/10/16 06:55 09/09/16 23:20 - Medications Medications: Current Medications Acetaminophen (Tylenol 325mg Tab) 650 mg PO Q6 PRN PRN Reason: Headache Last Admin: 09/09/16 16:55 Dose: 650 mg Amlodipine Besylate (Norvasc) 10 mg PO DAILY [facility] Last Admin: 09/09/16 10:14 Dose: 10 mg Aspirin (Aspirin Chewable) 81 mg PO DAILY [facility] Last Admin: 09/09/16 10:14 Dose: 81 mg Clopidogrel Bisulfate (Plavix) 75 mg PO DAILY [facility] Last Admin: 09/09/16 10:14 Dose: 75 mg Donepezil HCl (Aricept) 10 mg PO DAILY [facility] Last Admin: 09/09/16 10:14 Dose: 10 mg Famotidine (Pepcid) 20 mg PO DAILY [facility] Last Admin: 09/09/16 10:14 Dose: 20 mg Metoprolol Succinate (Toprol Xl) 25 mg PO DAILY [facility] Last Admin: 09/10/16 06:59 Dose: 25 mg Ondansetron HCl (Zofran Inj) 4 mg IVP Q6H PRN PRN Reason: Nausea/Vomiting Last Admin: 09/09/16 14:15 Dose: 4 mg Pregabalin (Lyrica) 25 mg PO DAILY [facility] Last Admin: 09/09/16 10:14 Dose: 25 mg Rosuvastatin Calcium (Crestor) 10 mg PO HS [facility] Last Admin: 09/09/16 21:16 Dose: 10 mg Trazodone HCl (Desyrel) 50 mg PO HS [facility] Last Admin: 09/09/16 21:16 Dose: 50 mg - Labs Labs: 09/09/16 07:56 09/09/16 07:56 PT 11.7 SECONDS (9.7-12.2) 09/08/16 15:12 INR 1.0 09/08/16 15:12 APTT 30 SECONDS (21-34) 09/08/16 15:12 - Constitutional Appears: Non-toxic, No Acute Distress - Head Exam Head Exam: ATRAUMATIC, NORMAL INSPECTION, NORMOCEPHALIC - Eye Exam Eye Exam: EOMI, Normal appearance, PERRL Pupil Exam: NORMAL ACCOMODATION - ENT Exam ENT Exam: Mucous Membranes Moist - Neck Exam Neck Exam: Full ROM - Respiratory Exam Respiratory Exam: NORMAL BREATHING PATTERN. absent: Wheezes - Cardiovascular Exam Cardiovascular Exam: +S1, +S2 - GI/Abdominal Exam GI & Abdominal Exam: Soft, Normal Bowel Sounds - Extremities Exam Extremities Exam: Full ROM, Normal Capillary Refill, Normal Inspection - Back Exam Back Exam: Full ROM, NORMAL INSPECTION - Neurological Exam Neurological Exam: Alert, Awake, CN II-XII Intact, Oriented x3 - Psychiatric Exam Psychiatric exam: Normal Affect, Normal Mood - Skin Skin Exam: Dry, Normal Color, Warm Assessment and Plan - Assessment and Plan (Free Text) Assessment: Angina Troponins negative x 3 Pro-BNP 715 EKG NSR with left axis deviation, occasional PVCS, no acute changes Cardiology, Dr. Joe, consulted. Help appreciated. Aspirin 81 mg PO daily Plavix 75 mg PO daily Metoprolol 25 mg PO daily Echo ~ 79% EF- LV normal size; mild concentric LVH; Refer to official read Chest X ray - cardiomegaly, no active disease but poor inspiration with low lung volumes, mild bibasilar atelectasis Triglycerides - 170 Stress test- normal findings; no apparent perfusion or metabolism defects noted Hypertension Amlodipine 10mg PO daily Metoprolol 25 mg PO daily Monitor BP Hyperlipidemia Crestor 10 mg PO HS Triglycerides - 170 Anemia Chronic Hgb 11.0 Monitor Dementia Donepezil 10mg PO daily Arthritis Continue Meloxicam 15mg PO daily Lyrica 25mg PO TID On alendronate 70 mg PO weekly at home Insomnia Tradozone 50mg PO HS Prophylactic Measures GI: Protonix 40mg PO daily DVT: SCDs, Heparin SC Q12 Heart healthy low sodium diet <Borker,Kia V - Last Filed: 09/12/16 09:16> Objective - Vital Signs/Intake and Output Vital Signs (last 24 hours): Temp Pulse Resp BP Pulse Ox 98.3 F 65 20 127/70 97 09/11/16 08:35 09/11/16 08:46 09/11/16 08:35 09/11/16 08:35 09/11/16 08:35 - Labs Labs: 09/11/16 06:30 09/11/16 06:47 PT 11.7 SECONDS (9.7-12.2) 09/08/16 15:12 INR 1.0 09/08/16 15:12 APTT 30 SECONDS (21-34) 09/08/16 15:12 Attending/Attestation - Attestation Notes (Text): note in error: management per Dr. Britton for 09/10/16
--- NOTE | 2016-09-10 10:15 | CARD ---
APPROVED REPORT EXAM: Two-dimensional and M-mode echocardiogram with Doppler and color Doppler. Other Information Quality : GoodRhythm : INDICATION Chest Pain RISK FACTORS Hypertension Hyperlipidemia M-Mode DIMENSIONS RVDd1.89 (2.1-3.2cm)Left Atrium (MM)3.24 (2.5-4.0cm) IVSd0.76 (0.7-1.1cm)Aortic Root2.40 (2.2-3.7cm) LVDd3.72 (4.0-5.6cm)Aortic Cusp Exc.1.66 (1.5-2.0cm) PWd1.21 (0.7-1.1cm)FS (%) 47 % LVDs1.97 (2.0-3.8cm)LVEF (%)79 (>50%) Mitral Valve MV E Iyfduxyg63.5cm/sMV A Ggugnonh86.7cm/sE/A ratio0.7 TDI E/Lateral E'0.0E/Medial E'0.0 Tricuspid Valve TR Peak Ehvitlzq719as/sTR Peak Gr.60vaVgZDIJ55rmZa LEFT VENTRICLE The left ventricle is normal size. There is mild concentric left ventricular hypertrophy. The left ventricular function is normal. The left ventricular ejection fraction is within the normal range. There is normal LV segmental wall motion. Transmitral Doppler flow pattern is Grade I-abnormal relaxation pattern. RIGHT VENTRICLE The right ventricle is normal size. There is normal right ventricular wall thickness. The right ventricular systolic function is normal. ATRIA The left atrium size is normal. The right atrium size is normal. AORTIC VALVE The aortic valve is mildly thickened. No aortic regurgitation is present. MITRAL VALVE The mitral valve is mildly thickened. Mitral regurgitation is trace. TRICUSPID VALVE The tricuspid valve is normal in structure. GREAT VESSELS The aortic root is normal in size. The IVC is normal in size and collapses >50% with inspiration. PERICARDIAL EFFUSION There is no pericardial effusion. <Conclusion> The left ventricle is normal size. There is mild concentric left ventricular hypertrophy. The left ventricular function is normal. The left ventricular ejection fraction is within the normal range. There is normal LV segmental wall motion. Transmitral Doppler flow pattern is Grade I-abnormal relaxation pattern.
--- NOTE | 2016-09-10 15:16 | CARD ---
APPROVED REPORT Protocol: LEXISCAN Test Type: LEXISCAN STRESS Test Indications: CP Target HR: 143 bpm Resting ECG: normal Resting Heart Rate: 63 bpm Resting Blood Pressure: 132/80mmHg submaximum (85%): 122 bpm TEST SUMMARY PREINFSNHYPERV.17:020.00..[id number]/80.6. INFUSIONDOSE 100:300.00.01.484757/80.1. MCXUPYOCE99:[id number]/80.0. PROCEDURE Pharmacologic stress testing was performed using 0.4mg per 5ml of regadenoson given intravenously over 7-10 seconds. POST EXERCISE Reason for Termination: Protocol Completed Target HR: No Max HR: 61 bpm 61% of Maximum Predicted HR: 143 bpm Exercise duration: 00:30 min:sec, 0 Stage Exercise capacity: 1.0METs Max Blood Pressure: 132/80mmHg Blood Pressure response to exercise: normal resting BP - appropriate response Heart Rate response to exercise: appropriate Chest Pain: No, none Angina index: 0 Arrhythmia: No, none ST Change: No, none Deviation: 0 mm INTERPRETATION Stress EKG Conclusion: AWAIT NUCLEAR IMAGES. EXAM: Myocardial Perfusion STRESS/REST Imaging Protocol The imaging protocol used to acquire images was Stress Tc-99m/rest Tc-99m 1 day Rest Spect myocardial perfusion imaging was performed in supine position 45 minutes following the injection of 32.5 mCi of Tc-99 Myoview. Gated Stress Spect was performed 45 minutes after intravenous 12.9 mCi Tc-99 Myoview injection. The images were gated to evaluate regional wall motion and calculate ventricular ejection fraction.Images were reconstructed using backfilter projection method in short horizontal and verticle long axis. Spect slices were generated. RESTING DATA EDV49.84bzNK9.30L/min ESV11.00mlMyocardial Mass90.00g Av. Heart Rate62.00bpm EF78.00% STRESS DATA EDV53.99rzPS0.80L/min ESV8.00mlMyocardial Mass95.00g EF85.00% Regional WT score at stress:0.00 Regional WM score at stress:0.00 Summed WT score at stress:0.00 Av. Heart Rate62.00bpmSummed WM score at stress:0.00 LV Perf. Quant 17 Seg. SSS0.00 17 Seg. SRS0.00 17 Seg. SDS0.00 Stress Defect Extent (% LAD)0.00Rest Defect Extent (% LAD)0.00Rev. Defect Extent (% LAD)0.00 Stress Defect Extent (% LCX)0.00Rest Defect Extent (% LCX)0.00Rev. Defect Extent (% LCX)0.00 Stress Defect Extent (% RCA)0.00Rest Defect Extent (% RCA)0.00Rev. Defect Extent (% RCA)0.00 Stress Defect Extent (% ANGY)0.00Rest Defect Extent (% ANGY)0.00Rev. Defect Extent (% ANGY)0.00 Other Information Quality:Excellent IMPRESSION Normal Myocardial Perfusion exercise stress study Global LV Function: Normal Stress Test Summary: Normal LV Perfusion Summary: Normal Left Ventricle LV Size/Shape: The left ventricle is normal size. LV Thickness: There is normal left ventricular wall thickness. LV Function:Left ventricle systolic function is normal. The Ejection Fraction is 55-60%. Regional Wall Motion:No regional wall motion abnormalities noted. Metabolism/Perfusion There are no perfusion/metabolism defects. Conclusion 1. The stress and resting images show normal perfusion.
[2016-09-10 15:30] VITALS: RESP 20
--- NOTE | 2016-09-10 18:06 | CARD ---
APPROVED REPORT EKG Measurement Heart [id number] [place] 166P62 [id number] <Conclusion> Normal sinus rhythm Nonspecific ST abnormality Abnormal ECG
--- NOTE | 2016-09-10 18:08 | CARD ---
APPROVED REPORT EKG Measurement Heart [id number] [place] 140P59 TEOv54ELD-2 [id number] [id number] <Conclusion> Sinus rhythm with occasional premature ventricular complexes Nonspecific ST abnormality Abnormal ECG
[2016-09-11 06:25] LABS: ALB/GLOB RATIO 1.2 (1.0-2.1); ALKALINE PHOSPHATASE 74 U/L (38-126); ALT/SGPT 21 U/L (9-52); AST/SGOT 23 U/L (14-36); BILIRUBIN,TOTAL 0.2 mg/dL (0.2-1.3); BLOOD UREA NITROGEN 15 mg/dL (7-17); CALCIUM 8.1 mg/dl (8.6-10.4); CARBON DIOXIDE 24 mmol/L (22-30); CHLORIDE 104 mmol/L (98-107); GFR AFRICAN-AMERICAN > 60; GLUCOSE,RANDOM 93 mg/dL (65-105); PHOSPHOROUS 3.8 mg/dL (2.5-4.5); SODIUM 138 mmol/L (132-148); TOTAL PROTEIN 6.3 g/dL (6.3-8.3)
[2016-09-11 07:32] LABS: BASO % 0.9 % (0.0-2.0); EOS # 0.2 K/uL (0.0-0.7); EOS % 3.9 % (0.0-4.0); HEMATOCRIT 34.2 % (34.0-47.0); LYMPH # 1.2 K/uL (1.0-4.3); LYMPH % 25.4 % (20.0-40.0); MEAN CELL VOLUME 82.6 fL (81.0-99.0); MEAN CORPUSCULAR HEMOGLOBIN 25.9 pg (27.0-31.0); MEAN CORPUSCULAR HGB CONC 31.3 g/dL (33.0-37.0); MEAN PLATELET VOLUME 8.6 fL (7.2-11.7); MONO # 0.4 K/uL (0.0-0.8); MONO % 8.4 % (0.0-10.0); NRBC % 0.1 % (0.0-2.0); RED CELL DISTRIBUTION WIDTH 15.8 % (11.5-14.5); WHITE BLOOD COUNT 4.9 K/uL (4.8-10.8)
[2016-09-11 08:36] VITALS: BP 127/70; PULSE 65; TEMP 98.3
[2016-09-11] MEDS: Metoprolol Succinate 25 mg XL Tab PO SCH (10:08)
--- NOTE | 2016-09-11 15:16 | CP.PCM.DIS ---
<OlesyaMaldonadojaneth - Last Filed: 09/11/16 22:41> Provider - Provider Date of Admission: 09/08/16 16:38 Attending physician: DO Kia Lundberg DO Consults: Cardio- Dr. Joe Time Spent in preparation of Discharge (in minutes): 45 Diagnosis - Discharge Diagnosis (1) Angina at rest Status: Acute (2) Hypertension Status: Acute (3) Hyperlipidemia Status: Acute (4) Anemia Status: Chronic (5) Dementia Status: Chronic (6) Arthritis Status: Chronic (7) Insomnia Status: Acute Hospital Course - Lab Results Lab Results: Most Recent Lab Values WBC 4.9 K/uL (4.8-10.8) 09/11/16 06:30 RBC 4.14 Mil/uL (3.80-5.20) 09/11/16 06:30 Hgb 10.7 g/dL (11.0-16.0) L 09/11/16 06:30 Hct 34.2 % (34.0-47.0) 09/11/16 06:30 MCV 82.6 fL (81.0-99.0) 09/11/16 06:30 MCH 25.9 pg (27.0-31.0) L 09/11/16 06:30 MCHC 31.3 g/dL (33.0-37.0) L 09/11/16 06:30 RDW 15.8 % (11.5-14.5) H 09/11/16 06:30 Plt Count 243 K/uL (130-400) 09/11/16 06:30 MPV 8.6 fL (7.2-11.7) 09/11/16 06:30 Neut % (Auto) 61.4 % (50.0-75.0) 09/11/16 06:30 Lymph % (Auto) 25.4 % (20.0-40.0) 09/11/16 06:30 [place] % (Auto) 8.4 % (0.0-10.0) 09/11/16 06:30 Eos % (Auto) 3.9 % (0.0-4.0) 09/11/16 06:30 Baso % (Auto) 0.9 % (0.0-2.0) 09/11/16 06:30 Neut # 3.0 K/uL (1.8-7.0) 09/11/16 06:30 Lymph # 1.2 K/uL (1.0-4.3) 09/11/16 06:30 Am[place] # 0.4 K/uL (0.0-0.8) 09/11/16 06:30 Eos # 0.2 K/uL (0.0-0.7) 09/11/16 06:30 Baso # 0.0 K/uL (0.0-0.2) 09/11/16 06:30 PT 11.7 SECONDS (9.7-12.2) 09/08/16 15:12 INR 1.0 09/08/16 15:12 APTT 30 SECONDS (21-34) 09/08/16 15:12 Sodium 138 mmol/L (132-148) 09/11/16 06:47 Potassium 4.0 mmol/L (3.6-5.2) 09/11/16 06:47 Chloride 104 mmol/L (98-107) 09/11/16 06:47 Carbon Dioxide 24 mmol/L (22-30) 09/11/16 06:47 Anion Gap 14 (10-20) 09/11/16 06:47 BUN 15 mg/dL (7-17) 09/11/16 06:47 Creatinine 0.8 MG/DL (0.7-1.2) 09/11/16 06:47 Est GFR ( Amer) > 60 09/11/16 06:47 Est GFR (Non-Af Amer) > 60 09/11/16 06:47 POC Glucose (mg/dL) 140 mg/dL (65-110) H 09/08/16 15:18 Random Glucose 93 mg/dL (65-105) 09/11/16 06:47 Hemoglobin A1c 5.5 % (4.2-6.5) 09/09/16 07:56 Calcium 8.1 mg/dl (8.6-10.4) L 09/11/16 06:47 Phosphorus 3.8 mg/dL (2.5-4.5) 09/11/16 06:47 Magnesium 2.0 mg/dL (1.6-2.3) 09/11/16 06:47 Total Bilirubin 0.2 mg/dL (0.2-1.3) 09/11/16 06:47 AST 23 U/L (14-36) 09/11/16 06:47 ALT 21 U/L (9-52) 09/11/16 06:47 Alkaline Phosphatase 74 U/L (38-126) 09/11/16 06:47 Total Creatine Kinase 91 U/L (30-135) 09/09/16 07:56 CK-MB (Mass) 0.69 ng/mL (0.0-3.38) 09/09/16 07:56 Troponin I < 0.0120 ng/mL (0.00-0.120) 09/08/16 15:12 Troponin I, Quant < 0.0120 ng/mL (0.00-0.120) 09/09/16 07:56 NT-Pro-B Natriuret Pep 715 pg/mL (0-900) 09/08/16 15:12 Total Protein 6.3 g/dL (6.3-8.3) 09/11/16 06:47 Albumin 3.4 g/dL (3.5-5.0) L 09/11/16 06:47 Globulin 2.9 gm/dL (2.2-3.9) 09/11/16 06:47 Albumin/Globulin Ratio 1.2 (1.0-2.1) 09/11/16 06:47 Triglycerides 170 mg/dL (0-149) H D 09/09/16 07:56 Cholesterol 129 mg/dL (0-199) 09/09/16 07:56 LDL Cholesterol Direct 49 mg/dL (0-129) 09/09/16 07:56 HDL Cholesterol 48 mg/dL (30-70) 09/09/16 07:56 Free T4 1.18 ng/dL (0.78-2.19) 09/09/16 07:56 TSH 3rd Generation 1.37 mIU/L (0.46-4.68) 09/09/16 07:56 - Hospital Course Hospital Course: On admission: Patient is a 75 year old female brought in by family to ER with a complaint of nausea, vomiting, headache, abdominal pain and chest pressure since approximately 14:00. She states that it started around 2 PM while she was cleaning in her house. She reports that this pain was midsternal 12/27 radiating to her neck. She admits to associated nausea and vomiting one time that was dark because she was drinking coffee. She states that it resolved in about an hour after she arrived to the ED. She took Aspirin 81 mg at home for the pain which is one of her daily medications. She reports having an UT in January of [address] Joe put in a stent. Her last visit with him was 3 weeks ago and she reports everything was "fine". She admits to a headache for the past few days but denies visual changes. She denies fever chills, palpitations, SOB, abd pain, diarrhea, constipation, urinary complaints, weakness/numbness, or dizziness. She can walk up 2 flights of stairs without getting SOB and does not use any extra pillows while sleeping. Hospital course: Patient admitted for close monitoring. Patient well known to Air Traffic Instructor Dr. Joe who was consulted. Patient underwent stress test with no acute findings for metabolic or perfusion related defects. Other pertinent studies include MELANIA ( negative x3), echocardiogram, pro bnp and EKG with noted left axis deviation and occasional pvcs w/o acute changes. Patient medically cleared for discharge with instructions to follow up outpatient. This is a brief summary of events. For a complete course, refer to medical record. Discharge Exam - Head Exam Head Exam: ATRAUMATIC, NORMAL INSPECTION, NORMOCEPHALIC - Eye Exam Eye Exam: EOMI, Normal appearance, PERRL Pupil Exam: NORMAL ACCOMODATION, PERRL - ENT Exam ENT Exam: Mucous Membranes Moist - Neck Exam Neck exam: Full Rom - Respiratory Exam Respiratory Exam: Clear to PA & Lateral, NORMAL BREATHING PATTERN, UNREMARKABLE - Cardiovascular Exam Cardiovascular Exam: REGULAR RHYTHM, +S1, +S2. absent: Tachycardia - GI/Abdominal Exam GI & Abdominal Exam: Normal Bowel Sounds, Soft. absent: Tenderness - Extremities Exam Extremities exam: full ROM - Back Exam Back exam: FULL ROM - Neurological Exam Neurological exam: Alert, Oriented x3 - Psychiatric Exam Psychiatric exam: Normal Affect, Normal Mood - Skin Skin Exam: Dry, Intact, Normal Color, Warm Discharge Plan - Follow Up Plan Condition: GOOD Disposition: HOME/ ROUTINE Instructions: Chest Pain (DC), Heart Healthy Diet (DC), Acute Nausea and Vomiting (DC) Additional Instructions: Patient is medically stable for discharge home. Patient should follow up with pantry goods worker, Dr. Joe within two weeks. Patient should follow up with PMD within one week. If patient does not have a PMD, they should follow up in the [facility] within one week. Patient should call [phone]. Patient may resume home medications. If symptoms return, go to Emergency department. Instructions have been explained to patient who is aware. Referrals: [facility] [Outside] Jag Joe MD [Staff Provider] - <Kia Bright V - Last Filed: 09/12/16 09:25> Provider - Provider Date of Admission: 09/08/16 16:38 Attending physician: Trent Britton, DO Hospital Course - Lab Results Lab Results: Most Recent Lab Values WBC 4.9 K/uL (4.8-10.8) 09/11/16 06:30 RBC 4.14 Mil/uL (3.80-5.20) 09/11/16 06:30 Hgb 10.7 g/dL (11.0-16.0) L 09/11/16 06:30 Hct 34.2 % (34.0-47.0) 09/11/16 06:30 MCV 82.6 fL (81.0-99.0) 09/11/16 06:30 MCH 25.9 pg (27.0-31.0) L 09/11/16 06:30 MCHC 31.3 g/dL (33.0-37.0) L 09/11/16 06:30 RDW 15.8 % (11.5-14.5) H 09/11/16 06:30 Plt Count 243 K/uL (130-400) 09/11/16 06:30 MPV 8.6 fL (7.2-11.7) 09/11/16 06:30 Neut % (Auto) 61.4 % (50.0-75.0) 09/11/16 06:30 Lymph % (Auto) 25.4 % (20.0-40.0) 09/11/16 06:30 Am[place] % (Auto) 8.4 % (0.0-10.0) 09/11/16 06:30 Eos % (Auto) 3.9 % (0.0-4.0) 09/11/16 06:30 Baso % (Auto) 0.9 % (0.0-2.0) 09/11/16 06:30 Neut # 3.0 K/uL (1.8-7.0) 09/11/16 06:30 Lymph # 1.2 K/uL (1.0-4.3) 09/11/16 06:30 [place] # 0.4 K/uL (0.0-0.8) 09/11/16 06:30 Eos # 0.2 K/uL (0.0-0.7) 09/11/16 06:30 Baso # 0.0 K/uL (0.0-0.2) 09/11/16 06:30 PT 11.7 SECONDS (9.7-12.2) 09/08/16 15:12 INR 1.0 09/08/16 15:12 APTT 30 SECONDS (21-34) 09/08/16 15:12 Sodium 138 mmol/L (132-148) 09/11/16 06:47 Potassium 4.0 mmol/L (3.6-5.2) 09/11/16 06:47 Chloride 104 mmol/L (98-107) 09/11/16 06:47 Carbon Dioxide 24 mmol/L (22-30) 09/11/16 06:47 Anion Gap 14 (10-20) 09/11/16 06:47 BUN 15 mg/dL (7-17) 09/11/16 06:47 Creatinine 0.8 MG/DL (0.7-1.2) 09/11/16 06:47 Est GFR ( Amer) > 60 09/11/16 06:47 Est GFR (Non-Af Amer) > 60 09/11/16 06:47 POC Glucose (mg/dL) 140 mg/dL (65-110) H 09/08/16 15:18 Random Glucose 93 mg/dL (65-105) 09/11/16 06:47 Hemoglobin A1c 5.5 % (4.2-6.5) 09/09/16 07:56 Calcium 8.1 mg/dl (8.6-10.4) L 09/11/16 06:47 Phosphorus 3.8 mg/dL (2.5-4.5) 09/11/16 06:47 Magnesium 2.0 mg/dL (1.6-2.3) 09/11/16 06:47 Total Bilirubin 0.2 mg/dL (0.2-1.3) 09/11/16 06:47 AST 23 U/L (14-36) 09/11/16 06:47 ALT 21 U/L (9-52) 09/11/16 06:47 Alkaline Phosphatase 74 U/L (38-126) 09/11/16 06:47 Total Creatine Kinase 91 U/L (30-135) 09/09/16 07:56 CK-MB (Mass) 0.69 ng/mL (0.0-3.38) 09/09/16 07:56 Troponin I < 0.0120 ng/mL (0.00-0.120) 09/08/16 15:12 Troponin I, Quant < 0.0120 ng/mL (0.00-0.120) 09/09/16 07:56 NT-Pro-B Natriuret Pep 715 pg/mL (0-900) 09/08/16 15:12 Total Protein 6.3 g/dL (6.3-8.3) 09/11/16 06:47 Albumin 3.4 g/dL (3.5-5.0) L 09/11/16 06:47 Globulin 2.9 gm/dL (2.2-3.9) 09/11/16 06:47 Albumin/Globulin Ratio 1.2 (1.0-2.1) 09/11/16 06:47 Triglycerides 170 mg/dL (0-149) H D 09/09/16 07:56 Cholesterol 129 mg/dL (0-199) 09/09/16 07:56 LDL Cholesterol Direct 49 mg/dL (0-129) 09/09/16 07:56 HDL Cholesterol 48 mg/dL (30-70) 09/09/16 07:56 Free T4 1.18 ng/dL (0.78-2.19) 09/09/16 07:56 TSH 3rd Generation 1.37 mIU/L (0.46-4.68) 09/09/16 07:56 Attending/Attestation - Attestation I have personally seen and examined this patient.: Yes I have fully participated in the care of the patient.: Yes I have reviewed all pertinent clinical information, including history, physical exam and plan: Yes Notes (Text): This is a late computer entry for 09/11/16. Patient seen, examined, and case discussed with day-time resident. Patient denies acute complaints at bedside. Patient is pleasant, sitting upright , with family. Stress test-normal findings; no apparent perfusion or metabolism defects noted Discussed with cardiology, patient is stable for discharge. Patient advised to follow-up with pantry goods worker upon discharge and PMD within one week of hospital discharge. Discussed discharge instructions with day-time resident. Patient to resume aspirin, plavix, beta jennifer, calcium channel jennifer, statin and advocated for diet and exercise modifications. Assessment/Plan 1) Angina * MELANIA: Negative X3 * Pro-BNP 715 * EKG NSR with left axis deviation, occasional PVCS, no acute changes * Cardiology, Dr. Joe, consulted. Help appreciated. * Aspirin 81 mg PO daily * Plavix 75 mg PO daily * Metoprolol XL 25 mg PO daily * Crestor 10mg PO qHS * Echo ~ 79% EF- LV normal size; mild concentric LVH; Refer to official read * Chest X ray - cardiomegaly, no active disease but poor inspiration with low lung volumes, mild bibasilar atelectasis * Triglycerides - 170, chol: 129, LDL: 49, HDl: 48 * Thyroid studies within normal * Stress test- normal findings; no apparent perfusion or metabolism defects noted * Hgba1c: 5.5 2) Hypertension * Amlodipine 10mg PO daily * Metoprolol XL 25 mg PO daily * Monitor vitals 3) Hyperlipidemia * Crestor 10 mg PO HS * Triglycerides - 170, chol: 129, LDL: 49, HDl: 48 4) History of Dementia * Donepezil 10mg PO daily 5) Arthritis * Continue Meloxicam 15mg PO daily * Lyrica 25mg PO TID 6) Osteoporosis * On alendronate 70 mg PO weekly at home 7) History of Insomnia * Tradozone 50mg PO HS 8) Prophylactic Measures * GI: Protonix 40mg PO daily * DVT: SCDs, Heparin SC Q12 * Heart healthy low sodium diet
[2016-09-14 10:49] VITALS: O2SAT 99
== END 2016-09-11 16:00 | disposition home or self-care (01) ==
LOC: C.ER 14:26 → C.9E 16:38 → INTOOBSV 16:38 → C.6T 17:25
PROVIDERS: ADMIT Hospitalist; ATTEND Hospitalist
DX: R07.9 Chest pain, unspecified (principal); E78.00 Pure hypercholesterolemia, unspecified; E78.5 Hyperlipidemia, unspecified; Z87.891 Personal history of nicotine dependence; I51.7 Cardiomegaly; I25.2 Old myocardial infarction
CPT/HCPCS: 36415; 71010; 78452; 80053; 80061; 82550; 82553; 82948; 83036; 83735; 83880; 84100; 84439; 84443; 84484; 85025; 85610; 85730; 93005; 93017; 93306; 99285; A9502; G0378; J1644; J2405

== ENCOUNTER 2018-03-26 17:21 | Observation (INO) | payer MEDICARE, OTHER ==
--- NOTE | 2018-03-26 18:39 | C.PDOC ---
History Of Present Illness 77-year-old female, PMHx includes Hypertension, [place], presents to the emergency department with complaints of sudden onset mid-sternal chest pressure developed today while doing house work. Pt notes associated shortness of breath and n ausea, after which symptoms resolved spontaneously. Patient denies taking any medication. She states pain is similar to previous [place], many years ago. Notes she became anxious, which was followed by another episode of shortness of breath, prompting visit/ She denies any numbness/weakness, dizziness, arm pain, neck pain, or any other associated symptoms. No other complaints at this time. Time Seen by Provider: 03/26/18 18:25 Chief Complaint (Nursing): Palpitations History Per: Patient History/Exam Limitations: no limitations Past Medical History Reviewed: Historical Data, Nursing Documentation, Vital Signs Vital Signs: Last Vital Signs Temp 97.7 F 03/26/18 18:06 Pulse 92 H 03/26/18 18:06 Resp 20 03/26/18 18:06 BP 162/73 H 03/26/18 18:06 Pulse Ox 100 03/26/18 18:06 - Medical History PMH: Anemia, Arthritis, Dementia, HTN, Hypercholesterolemia Denies: Atrial Fibrillation, Cardia Arrhythmia, Chronic Kidney Disease Surgical History: Coronary Stent (proximal RCA 2006) - [facility] Procedures CORONAR ARTERIOGR-2 CATH (02/10/15) INSERTION OF ONE VASCULAR STENT (02/10/15) INSRT OF DRUG-ELUTING CORON ARTERY STENTS(S) (02/10/15) LEFT HEART CARDIAC CATH (02/10/15) LT HEART ANGIOCARDIOGRAM (02/10/15) PERCUTANEOUS TRANSLUMINAL CORONARY ANGIOPLASTY [PTCA] (02/10/15) PROCEDURE ON SINGLE VESSEL (02/10/15) Family History: States: No Known Family Hx - Social History Hx Alcohol Use: No Hx Substance Use: No - Immunization History Hx Tetanus Toxoid Vaccination: (unk) Hx Influenza Vaccination: No Hx Pneumococcal Vaccination: Yes Review Of Systems Constitutional: Negative for: Fever Cardiovascular: Positive for: Chest Pain Respiratory: Positive for: Shortness of Breath Gastrointestinal: Positive for: Nausea Skin: Negative for: Rash Neurological: Negative for: Weakness, Numbness, Headache, Dizziness Psych: Positive for: Anxiety Physical Exam - Physical Exam Appears: Non-toxic, No Acute Distress Skin: Warm, Dry, No Rash Head: Atraumatic Eye(s): bilateral: Normal Inspection Nose: Normal Oral Mucosa: Moist Lips: Normal Appearing Neck: Normal ROM Cardiovascular: Rhythm Regular, No Murmur Respiratory: Normal Breath Sounds, No Accessory Muscle Use Extremity: Normal ROM, No Deformity Neurological/Psych: Oriented x3, Normal Speech ED Course And Treatment - Laboratory Results Result Diagrams: 03/26/18 20:50 03/26/18 20:50 Lab Interpretation: No Acute Changes ECG: Interpreted By Me, Viewed By Me ECG Rhythm: Sinus Rhythm (+), PVC Interpretation Of ECG: ST depressions in V4, V5, V6 Rate From EC O2 Sat by Pulse Oximetry: 100 Pulse Ox Interpretation: Normal (RA) - Radiology CXR: Interpreted by Me CXR Interpretation: Yes: No Acute Disease Reevaluation Time: 21:51 Reassessment Condition: Improved - Physician Consult Information Time Consulting Physician Contacted: 21:57 Physician Contacted: Manuel Wright Outcome Of Conversation: He agrees to keep the patient for cardiac observation Disposition - Disposition Disposition: HOSPITALIZED Disposition Time: 21:58 Condition: STABLE - POA Present On Arrival: None - Clinical Impression Clinical Impression: Chest pain - Scribe Statement The provider has reviewed the documentation as recorded by the Scribe (Edgar Conrad) All medical record entries made by the Scribe were at my direction and personally dictated by me. I have reviewed the chart and agree that the record accurately reflects my personal performance of the history, physical exam, medical decision making, and the department course for this patient. I have also personally directed, reviewed, and agree with the discharge instructions and disposition.
[2018-03-26 20:59] LABS: BASO % 0.5 % (0.0-2.0); EOS # 0.1 K/uL (0.0-0.7); EOS % 0.7 % (0.0-4.0); HEMOGLOBIN 13.8 g/dL (11.0-16.0); LYMPH # 1.5 K/uL (1.0-4.3); LYMPH % 18.9 % (20.0-40.0); MEAN CELL VOLUME 87.1 fL (81.0-99.0); MEAN CORPUSCULAR HGB CONC 34.4 g/dL (33.0-37.0); MEAN PLATELET VOLUME 8.7 fL (7.2-11.7); MONO # 0.3 K/uL (0.0-0.8); MONO % 4.3 % (0.0-10.0); NEUT % 75.6 % (50.0-75.0); NRBC % 0.1 % (0.0-2.0); RBC 4.59 Mil/uL (3.80-5.20); RED CELL DISTRIBUTION WIDTH 13.4 % (11.5-14.5)
[2018-03-26 21:23] LABS: ALB/GLOB RATIO 1.2 (1.0-2.1); ALBUMIN 4.6 g/dL (3.5-5.0); ALT/SGPT 20 U/L (9-52); AST/SGOT 33 U/L (14-36); BLOOD UREA NITROGEN 15 mg/dL (7-17); CALCIUM 9.6 mg/dl (8.6-10.4); GFR NON-AFRICAN AMERICAN 53
--- NOTE | 2018-03-27 01:48 | CP.PCM.HP ---
<Corrina Haynes P - Last Filed: 03/27/18 11:35> History of Present Illness - History of Present Illness History of Present Illness: H&P for hospitalist service. HPI: 77 year old female with PMHx of VT, HTN, hyperlipidemia, arthritis, anemia, and dementia presents to ED complaining of episodic midsternal chest pain that began at noon while at rest. Pain is described as squeezing and heat to the chest, and lasts for 3 seconds. There have been 3 episodes. Pain does not radiate. States the pain feels like the same pain as her previous VT. Associated symptoms include mild shortness of breath, nausea, chills, and palpitations. Denies fever, diaphoresis, dizziness, cough, nausea, vomiting, recent travel. PMHx: VT with stent placement, HTN, hyperlipidemia, arthritis, anemia, and dementia PSHx: Cardiac stent 2014 Meds: Metoprolol succinate 25 daily, Asa 81mg daily, alendronate 70mg weekly, trazodone 50mg PRN, amlodipine 10mg QD, Crestor 10mg HS, Lyrica 25mg TID Allergies: NKDA Family: Mother-VT Social: former smoker- 4 cigarettes per day for 30 years, quit 3 years ago. Denies alcohol and drugs. Lives with daughter Code status: patient unsure Proxy: Char Arthur, daughter- [phone] Present on Admission - Present on Admission Any Indicators Present on Admission: No Review of Systems - Constitutional Constitutional: Chills, Headache. absent: Anorexia, Fever, Night Sweats - EENT Eyes: absent: Blurred Vision, Dry Eye, Pain Nose/Mouth/Throat: absent: Odynophagia, Sore Throat - Cardiovascular Cardiovascular: Chest Pain, Dyspnea, Pain Radiating to Arm/Neck/Jaw, Palpitations. absent: Diaphoresis, Edema, Lightheadedness - Respiratory Respiratory: Dyspnea. absent: Cough, Hemoptysis - Gastrointestinal Gastrointestinal: Abdominal Pain, Nausea. absent: Diarrhea, Heartburn, Hematemesis, Melena, Vomiting - Genitourinary Genitourinary: absent: Difficulty Urinating, Dysuria, Flank Pain, Urinary Frequency - Musculoskeletal Musculoskeletal: Arthralgias (chronic arthritis pain to hands and feet). absent: Numbness, Tingling - Integumentary Integumentary: absent: Dry Skin, Unusual Bruising, Wounds - Neurological Neurological: Headaches. absent: Abnormal Hearing, Dizziness, Numbness, Focal Weakness, Loss of Vision, Paresthesias Past Patient History - Infectious Disease Hx of Infectious Diseases: None - Past Medical History & Family History Past Medical History?: Yes - Past Social History Smoking Status: Never Smoked - CARDIAC Hx Atrial Fibrillation: No Hx Cardia Arrhythmia: No Hx Hypercholesterolemia: Yes Hx Hypertension: Yes - PULMONARY Hx Respiratory Disorders: No - NEUROLOGICAL Hx Dementia: Yes - HEENT Hx Cataracts: Yes - RENAL Hx Chronic Kidney Disease: No - ENDOCRINE/METABOLIC Hx Endocrine Disorders: No - HEMATOLOGICAL/ONCOLOGICAL Hx Anemia: Yes - INTEGUMENTARY Hx Dermatological Problems: No - MUSCULOSKELETAL/RHEUMATOLOGICAL Hx Arthritis: Yes - GASTROINTESTINAL Hx Gastrointestinal Disorders: Yes Hx Gastroesophageal Reflux: Yes - GENITOURINARY/GYNECOLOGICAL Hx Genitourinary Disorders: No - PSYCHIATRIC Hx Substance Use: No - SURGICAL HISTORY Hx Coronary Stent: Yes (proximal RCA 2006) - ANESTHESIA Hx Anesthesia: Yes Hx Anesthesia Reactions: No Hx Malignant Hyperthermia: No Meds Allergies/Adverse Reactions: Allergies Allergy/AdvReac Type Severity Reaction Status Date / Time No Known Allergies Allergy Verified 03/26/18 18:44 Physical Exam - Constitutional Appears: Non-toxic, No Acute Distress - Head Exam Head Exam: ATRAUMATIC, NORMOCEPHALIC - Eye Exam Eye Exam: EOMI, Normal appearance - ENT Exam ENT Exam: Mucous Membranes Moist - Neck Exam Neck exam: Positive for: Full Rom, Normal Inspection - Respiratory Exam Respiratory Exam: Clear to Auscultation Bilateral, NORMAL BREATHING PATTERN. absent: Decreased Breath Sounds, Rales, Rhonchi, Wheezes - Cardiovascular Exam Cardiovascular Exam: RRR, +S1, +S2. absent: Systolic Murmur - GI/Abdominal Exam GI & Abdominal Exam: Normal Bowel Sounds, Soft. absent: Guarding, Rebound, Rigid, Tenderness - Extremities Exam Extremities exam: Positive for: full ROM, normal capillary refill, normal inspection, pedal pulses present. Negative for: calf tenderness, pedal edema - Neurological Exam Neurological exam: Alert, CN II-XII Intact, Oriented x3 - Psychiatric Exam Psychiatric exam: Normal Affect, Normal Mood - Skin Skin Exam: Dry, Intact, Normal Color, Warm Results - Vital Signs Recent Vital Signs: Last Vital Signs Temp 98.1 F 03/26/18 23:10 Pulse 78 03/26/18 23:10 Resp 20 03/26/18 23:10 BP 155/77 H 03/26/18 23:10 Pulse Ox 98 03/26/18 23:10 - Labs Result Diagrams: 03/27/18 07:37 03/27/18 07:37 Labs: Laboratory Results - last 24 hr 03/26/18 03/26/18 20:50 20:50 WBC 8.0 D RBC 4.59 Hgb 13.8 D Hct 40.0 MCV 87.1 D MCH 30.0 MCHC 34.4 RDW 13.4 Plt Count 277 MPV 8.7 Neut % (Auto) 75.6 H Lymph % (Auto) 18.9 L [place] % (Auto) 4.3 Eos % (Auto) 0.7 Baso % (Auto) 0.5 Neut # (Auto) 6.0 Lymph # (Auto) 1.5 [place] # (Auto) 0.3 Eos # (Auto) 0.1 Baso # (Auto) 0.0 Sodium 141 Potassium 3.9 Chloride 105 Carbon Dioxide 21 L Anion Gap 18 BUN 15 Creatinine 1.0 Est GFR ( Amer) > 60 Est GFR (Non-Af Amer) 53 Random Glucose 101 Calcium 9.6 Total Bilirubin 0.4 AST 33 ALT 20 Alkaline Phosphatase 97 Troponin I < 0.0120 Total Protein 8.3 Albumin 4.6 Globulin 3.7 Albumin/Globulin Ratio 1.2 Assessment & Plan - Assessment and Plan (Free Text) Plan: 77 year old female with PMHx of VT, HTN, hyperlipidemia, arthritis, anemia, and dementia admitted for chest pain. Chest pain rule out ACS Hx VT with sent placement 2014 -EKG: NSR at 91 bpm occasional PVCs, nonspecific ST abnormality -Troponin negx1, f/u serial ROMIs -f/u lipid panel -f/u hgb A1c -f/u TSH -f/u BNP -Start Aspirin 81mg daily -echo -Cardiology, Dr. Joe consulted. Help appreciated. HTN -Metoprolol succinate 25mg HS -Amlodipine 10mg daily Hypercholesterolemia -f/u lipid panel -Crestor 10mg PO HS (home med) Hx Anemia Hgb 13.8 Monitor Arthritis -Continue home med Lyrica 25mg PO TID Dementia -Continue home med Donepezil 10mg PO daily Prophylaxis -SCD -Heparin 5000 Q8H -GI prophylaxis not indicated -HHD Case discussed with attending physician, Dr. Wright. <Manuel Wright - Last Filed: 03/29/18 19:02> Results - Vital Signs Recent Vital Signs: Last Vital Signs Temp 98.5 F 03/29/18 04:09 Pulse 61 03/29/18 04:21 Resp 71 H 03/29/18 09:29 BP 137/74 03/29/18 09:29 Pulse Ox 96 03/29/18 04:09 - Labs Result Diagrams: 03/29/18 06:28 03/29/18 06:28 Labs: Laboratory Results - last 24 hr 03/29/18 03/29/18 06:28 06:28 WBC 5.2 RBC 4.44 Hgb 13.2 Hct 39.1 MCV 88.2 MCH 29.8 MCHC 33.8 RDW 13.5 Plt Count 227 MPV 8.5 Neut % (Auto) 69.2 Lymph % (Auto) 20.7 [place] % (Auto) 8.0 Eos % (Auto) 1.5 Baso % (Auto) 0.6 Neut # (Auto) 3.6 Lymph # (Auto) 1.1 [place] # (Auto) 0.4 Eos # (Auto) 0.1 Baso # (Auto) 0.0 Sodium 139 Potassium 3.8 Chloride 107 Carbon Dioxide 24 Anion Gap 12 BUN 16 Creatinine 0.8 Est GFR ( Amer) > 60 Est GFR (Non-Af Amer) > 60 Random Glucose 93 Calcium 8.2 L Phosphorus 3.5 Magnesium 2.0 Total Bilirubin 0.4 AST 24 ALT 23 Alkaline Phosphatase 71 Total Protein 6.6 Albumin 3.5 Globulin 3.1 Albumin/Globulin Ratio 1.1 Assessment & Plan - Date & Time Date: 03/29/18 (I have seen and examined the patient. I agree with the findings and plan of care as documented by Dr. Haynes. Patient with chest pain. History of hypercholesterolemia and hypertension. Continue home meds. ROMIx3 with EKG. Aspirin. monitor for acute changes.) Time: 19:00 Attending/Attestation - Attestation I have personally seen and examined this patient.: Yes I have fully participated in the care of the patient.: Yes I have reviewed all pertinent clinical information: Yes
[2018-03-27 03:05] LABS: CK-MB 1.36 ng/mL (0.0-3.38)
--- NOTE | 2018-03-27 07:42 | CP.PCM.PN ---
<Miriam Dao - Last Filed: 03/27/18 19:11> Subjective - Date & Time of Evaluation Date of Evaluation: 03/27/18 Time of Evaluation: 07:42 - Subjective Subjective: Progress note for Hospitalist service Patient seen and examined at bedside. She states she no longer has chest pain, but continues to experience palpitations intermittently. She states she has some nausea today. She complains of right shoulder and right leg pain. She denies chest pain, shortness of breath, headache, dizziness, abdominal pain, nausea, vomiting, diarrhea. Objective - Vital Signs/Intake and Output Vital Signs (last 24 hours): Temp Pulse Resp BP Pulse Ox 98.4 F 76 20 121/68 97 03/27/18 04:35 03/27/18 04:35 03/27/18 04:35 03/27/18 04:35 03/27/18 04:35 - Medications Medications: Current Medications Amlodipine Besylate (Norvasc) 10 mg PO DAILY [facility] Aspirin (Aspirin Chewable) 81 mg PO DAILY [facility] Donepezil HCl (Aricept) 10 mg PO HS [facility] Heparin Sodium (Porcine) (Heparin) 5,000 units SC Q8 [facility] Last Admin: 03/27/18 06:39 Dose: 5,000 units Influenza Virus Vaccine (Fluzone Quad [id number]) 60 mcg IM .ONCE ONE Stop: 03/28/18 10:01 Metoprolol Succinate (Toprol Xl) 25 mg PO DAILY [facility] Pregabalin (Lyrica) 25 mg PO TID [facility] Rosuvastatin Calcium (Crestor) 10 mg PO HS [facility] Last Admin: 03/27/18 00:00 Dose: 10 mg - Labs Labs: 03/26/18 20:50 03/26/18 20:50 - Constitutional Appears: Well, No Acute Distress - Head Exam Head Exam: ATRAUMATIC, NORMOCEPHALIC - Eye Exam Eye Exam: EOMI, PERRL - ENT Exam ENT Exam: Mucous Membranes Moist - Neck Exam Neck Exam: Full ROM. absent: Tenderness - Respiratory Exam Respiratory Exam: Clear to Ausculation Bilateral. absent: Rales, Rhonchi, Wheezes, Respiratory Distress, Stridor - Cardiovascular Exam Cardiovascular Exam: REGULAR RHYTHM, +S1, +S2. absent: Gallop, Rubs, Murmur - GI/Abdominal Exam GI & Abdominal Exam: Soft, Normal Bowel Sounds. absent: Distended, Firm, Guarding, Rigid, Tenderness, Organomegaly - Extremities Exam Extremities Exam: Normal Capillary Refill. absent: Calf Tenderness, Pedal Edema - Back Exam Back Exam: absent: CVA tenderness (L), CVA tenderness (R) - Neurological Exam Neurological Exam: Alert, Awake, Oriented x3 - Psychiatric Exam Psychiatric exam: Normal Affect, Normal Mood - Skin Skin Exam: Dry, Intact, Warm Assessment and Plan - Assessment and Plan (Free Text) Plan: Plan: 77 year old female with PMHx of [place] s/p RCA stent, HTN, hyperlipidemia, arthritis, anemia, and dementia admitted for chest pain. Chest pain rule out ACS Hx [facility] with mid RCA stent placement 2014 - EKG: NSR at 91 bpm occasional PVCs, nonspecific ST abnormality - Troponin negx3 - Lipid panel TG 96 Cholesterol 137 LDL 52 HDL 70 - hgb A1c 5.7 - TSH 1.40 - BNP 565 - Start Aspirin 81mg daily - F/u ECHO report - Cardiology, Dr. Joe consulted. Dr. Wolf covering for patient. - Plan for cardiac cath in AM. NPO after breakfast tomorrow. HTN - Metoprolol succinate 25mg HS - Amlodipine 10mg daily Hypercholesterolemia - Lipid panel TG 96 Cholesterol 137 LDL 52 HDL 70 - Crestor 10mg PO HS (home med) Hx Anemia - Hgb 13.3/Hct 39.0 - Continue to monitor Arthritis - Continue home med Lyrica 25mg PO TID Dementias - Continue home med Donepezil 10mg PO daily Prophylaxis - SCDs - Heparin 5000 Q8H held - GI prophylaxis not indicated - HHD Case discussed with Dr. Kristine Dao, PGY1 <Candace Carmona - Last Filed: 03/28/18 17:06> Objective - Vital Signs/Intake and Output Vital Signs (last 24 hours): Temp Pulse Resp BP Pulse Ox 98.1 F 64 20 125/70 98 03/28/18 15:00 03/28/18 15:00 03/28/18 15:00 03/28/18 15:00 03/28/18 15:00 - Medications Medications: Current Medications Acetaminophen (Tylenol 325mg Tab) 650 mg PO Q6 PRN PRN Reason: Pain, moderate (4-7) Amlodipine Besylate (Norvasc) 10 mg PO DAILY [facility] Last Admin: 03/28/18 10:16 Dose: 10 mg Aspirin (Aspirin Chewable) 81 mg PO DAILY [facility] Last Admin: 03/28/18 10:16 Dose: 81 mg Donepezil HCl (Aricept) 10 mg PO HS [facility] Last Admin: 03/27/18 21:57 Dose: 10 mg Metoprolol Succinate (Toprol Xl) 25 mg PO DAILY [facility] Last Admin: 03/28/18 10:16 Dose: 25 mg Pregabalin (Lyrica) 25 mg PO TID [facility] Last Admin: 03/28/18 10:16 Dose: 25 mg Rosuvastatin Calcium (Crestor) 10 mg PO HS [facility] Last Admin: 03/27/18 21:57 Dose: 10 mg - Labs Labs: 03/28/18 06:34 03/28/18 06:34 PT 11.9 SECONDS (9.7-12.2) 03/28/18 06:34 INR 1.1 03/28/18 06:34 APTT 31 SECONDS (21-34) 03/28/18 06:34 Attending/Attestation - Attestation I have personally seen and examined this patient.: Yes I have fully participated in the care of the patient.: Yes I have reviewed all pertinent clinical information, including history, physical exam and plan: Yes Notes (Text): Seen and examined. Patient's had typical chest pain .Going for cardiac cath tomorrow discussed with daughter at bedside I agree with the resident's documentation continue aspirin,statin and metoprolol
--- NOTE | 2018-03-27 07:49 | RAD ---
Date of service: 03/26/2018 PROCEDURE: CHEST RADIOGRAPH, 1 VIEW HISTORY: chest pain COMPARISON: 09/08/2016 FINDINGS: LUNGS: No consolidation PLEURA: No pneumothorax or pleural fluid seen. CARDIOVASCULAR: There is presence of aortic atherosclerotic calcification on x-ray. Mild cardiomegaly-similar No significant appearing pulmonary venous congestion. OSSEOUS STRUCTURES: No fracture. Cervical and bilateral shoulder arthrosis VISUALIZED UPPER ABDOMEN: Normal. OTHER FINDINGS: Dense calcification projects over each inferior hilum and left superior heart border-stable appearing. Calcified nodes 1 consideration. IMPRESSION: No active disease.No interval pathology noted.
[2018-03-27 07:52] LABS: HEMOGLOBIN 13.3 g/dL (11.0-16.0); MEAN CELL VOLUME 88.2 fL (81.0-99.0); MEAN CORPUSCULAR HEMOGLOBIN 30.1 pg (27.0-31.0); MEAN CORPUSCULAR HGB CONC 34.2 g/dL (33.0-37.0); RBC 4.42 Mil/uL (3.80-5.20); RED CELL DISTRIBUTION WIDTH 13.7 % (11.5-14.5); WHITE BLOOD COUNT 5.6 K/uL (4.8-10.8)
[2018-03-27 07:53] LABS: BASO % 0.7 % (0.0-2.0); EOS # 0.1 K/uL (0.0-0.7); EOS % 1.8 % (0.0-4.0); LYMPH # 1.2 K/uL (1.0-4.3); LYMPH % 20.8 % (20.0-40.0); MEAN PLATELET VOLUME 8.4 fL (7.2-11.7); MONO # 0.4 K/uL (0.0-0.8); MONO % 7.1 % (0.0-10.0); NEUT # 3.9 K/uL (1.8-7.0); NEUT % 69.6 % (50.0-75.0)
[2018-03-27 08:27] LABS: ALB/GLOB RATIO 1.2 (1.0-2.1); ALBUMIN 3.9 g/dL (3.5-5.0); ALT/SGPT 24 U/L (9-52); AST/SGOT 27 U/L (14-36); BLOOD UREA NITROGEN 13 mg/dL (7-17); CALCIUM 8.5 mg/dl (8.6-10.4); GFR NON-AFRICAN AMERICAN > 60; HDL CHOLESTEROL 70 mg/dL (30-70)
[2018-03-27 08:34] LABS: B-TYPE NATRIURETIC PEPTIDE 565 pg/mL (0-900)
[2018-03-27 08:36] LABS: LDL CHOLESTEROL 52 mg/dL (0-129)
[2018-03-27 09:11] LABS: CK-MB 1.71 ng/mL (0.0-3.38)
[2018-03-27] MEDS: Metoprolol Succinate 25 mg XL Tab PO SCH (09:57)
--- NOTE | 2018-03-27 13:15 | CP.PCM.CON ---
History of Present Illness - History of Present Illness History of Present Illness: HPI: 77 year old female with PMHx of SD, HTN, hyperlipidemia, arthritis, anemia, and dementia presents to ED complaining of episodic midsternal chest pain that began at noon while at rest. Pain is described as squeezing and heat to the chest, and lasts for 3 seconds. There have been 3 episodes. Pain does not radiate. States the pain feels like the same pain as her previous SD. Associated symptoms include mild shortness of breath, nausea, chills, and palpitations. Denies fever, diaphoresis, dizziness, cough, nausea, vomiting, recent travel. At the time of exam, sitting in bed and explained her symptoms typical of angina with the help of diplomatic interpreter. Past Patient History - Infectious Disease Hx of Infectious Diseases: None - Past Medical History & Family History Past Medical History?: Yes - Past Social History Smoking Status: Never Smoked - CARDIAC Hx Atrial Fibrillation: No Hx Cardia Arrhythmia: No Hx Hypercholesterolemia: Yes Hx Hypertension: Yes - PULMONARY Hx Respiratory Disorders: No - NEUROLOGICAL Hx Dementia: Yes - HEENT Hx Cataracts: Yes - RENAL Hx Chronic Kidney Disease: No - ENDOCRINE/METABOLIC Hx Endocrine Disorders: No - HEMATOLOGICAL/ONCOLOGICAL Hx Anemia: Yes - INTEGUMENTARY Hx Dermatological Problems: No - MUSCULOSKELETAL/RHEUMATOLOGICAL Hx Arthritis: Yes - GASTROINTESTINAL Hx Gastrointestinal Disorders: Yes Hx Gastroesophageal Reflux: Yes - GENITOURINARY/GYNECOLOGICAL Hx Genitourinary Disorders: No - PSYCHIATRIC Hx Substance Use: No - SURGICAL HISTORY Hx Coronary Stent: Yes (proximal RCA 2007) - ANESTHESIA Hx Anesthesia: Yes Hx Anesthesia Reactions: No Hx Malignant Hyperthermia: No Meds Allergies/Adverse Reactions: Allergies Allergy/AdvReac Type Severity Reaction Status Date / Time No Known Allergies Allergy Verified 03/26/18 18:44 - Medications Medications: Current Medications Amlodipine Besylate (Norvasc) 10 mg PO DAILY [facility] Last Admin: 03/27/18 09:57 Dose: 10 mg Aspirin (Aspirin Chewable) 81 mg PO DAILY [facility] Last Admin: 03/27/18 09:57 Dose: 81 mg Donepezil HCl (Aricept) 10 mg PO HS [facility] Heparin Sodium (Porcine) (Heparin) 5,000 units SC Q8 [facility] Last Admin: 03/27/18 06:39 Dose: 5,000 units Influenza Virus Vaccine (Fluzone Quad [id number]) 60 mcg IM .ONCE ONE Stop: 03/28/18 10:01 Metoprolol Succinate (Toprol Xl) 25 mg PO DAILY [facility] Last Admin: 03/27/18 09:57 Dose: 25 mg Pregabalin (Lyrica) 25 mg PO TID [facility] Last Admin: 03/27/18 09:57 Dose: 25 mg Rosuvastatin Calcium (Crestor) 10 mg PO HS [facility] Last Admin: 03/27/18 00:00 Dose: 10 mg Results - Vital Signs Recent Vital Signs: Last Vital Signs Temp 98.2 F 03/27/18 07:00 Pulse 77 03/27/18 12:00 Resp 18 03/27/18 07:00 BP 137/76 03/27/18 07:00 Pulse Ox 98 03/27/18 07:00 - Labs Result Diagrams: 03/27/18 07:37 03/27/18 07:37 Labs: Laboratory Results - last 24 hr 03/26/18 03/26/18 03/27/18 20:50 20:50 02:18 WBC 8.0 D RBC 4.59 Hgb 13.8 D Hct 40.0 MCV 87.1 D MCH 30.0 MCHC 34.4 RDW 13.4 Plt Count 277 MPV 8.7 Neut % (Auto) 75.6 H Lymph % (Auto) 18.9 L [place] % (Auto) 4.3 Eos % (Auto) 0.7 Baso % (Auto) 0.5 Neut # (Auto) 6.0 Lymph # (Auto) 1.5 [place] # (Auto) 0.3 Eos # (Auto) 0.1 Baso # (Auto) 0.0 Sodium 141 Potassium 3.9 Chloride 105 Carbon Dioxide 21 L Anion Gap 18 BUN 15 Creatinine 1.0 Est GFR ( Amer) > 60 Est GFR (Non-Af Amer) 53 Random Glucose 101 Hemoglobin A1c Calcium 9.6 Phosphorus Magnesium Total Bilirubin 0.4 AST 33 ALT 20 Alkaline Phosphatase 97 Total Creatine Kinase 182 H CK-MB (Mass) 1.36 Troponin I < 0.0120 < 0.0120 NT-Pro-B Natriuret Pep Total Protein 8.3 Albumin 4.6 Globulin 3.7 Albumin/Globulin Ratio 1.2 Triglycerides Cholesterol LDL Cholesterol Direct HDL Cholesterol TSH 3rd Generation 03/27/18 03/27/18 03/27/18 07:37 07:37 07:37 WBC 5.6 RBC 4.42 Hgb 13.3 Hct 39.0 MCV 88.2 MCH 30.1 MCHC 34.2 RDW 13.7 Plt Count 242 MPV 8.4 Neut % (Auto) 69.6 Lymph % (Auto) 20.8 [place] % (Auto) 7.1 Eos % (Auto) 1.8 Baso % (Auto) 0.7 Neut # (Auto) 3.9 Lymph # (Auto) 1.2 [place] # (Auto) 0.4 Eos # (Auto) 0.1 Baso # (Auto) 0.0 Sodium 142 Potassium 3.5 L Chloride 107 Carbon Dioxide 26 Anion Gap 12 BUN 13 Creatinine 0.8 Est GFR ( Amer) > 60 Est GFR (Non-Af Amer) > 60 Random Glucose 98 Hemoglobin A1c 5.7 Calcium 8.5 L Phosphorus 3.2 Magnesium 2.0 Total Bilirubin 0.4 AST 27 ALT 24 Alkaline Phosphatase 88 Total Creatine Kinase CK-MB (Mass) Troponin I NT-Pro-B Natriuret Pep 565 Total Protein 7.3 Albumin 3.9 Globulin 3.3 Albumin/Globulin Ratio 1.2 Triglycerides 96 D Cholesterol 137 LDL Cholesterol Direct 52 HDL Cholesterol 70 TSH 3rd Generation 1.40 03/27/18 08:44 WBC RBC Hgb Hct MCV MCH MCHC RDW Plt Count MPV Neut % (Auto) Lymph % (Auto) [place] % (Auto) Eos % (Auto) Baso % (Auto) Neut # (Auto) Lymph # (Auto) [place] # (Auto) Eos # (Auto) Baso # (Auto) Sodium Potassium Chloride Carbon Dioxide Anion Gap BUN Creatinine Est GFR ( Amer) Est GFR (Non-Af Amer) Random Glucose Hemoglobin A1c Calcium Phosphorus Magnesium Total Bilirubin AST ALT Alkaline Phosphatase Total Creatine Kinase 144 H CK-MB (Mass) 1.71 Troponin I < 0.0120 NT-Pro-B Natriuret Pep Total Protein Albumin Globulin Albumin/Globulin Ratio Triglycerides Cholesterol LDL Cholesterol Direct HDL Cholesterol TSH 3rd Generation - EKG Data EKG comments: Sinus rhythm with PVC and ST-T changes suggestive of ischemia. Assessment & Plan (1) Angina at rest Assessment and Plan: History of SD, S/P Stent. Typical presentation. Plans for cardiac cath in AM. Status: Acute (2) Hypertension Assessment and Plan: Continue current antihypertensive regimen. Echocardiogram to assess LV systolic function. Status: Acute
--- NOTE | 2018-03-27 21:41 | CARD ---
APPROVED REPORT Date of service: 03/26/2018 EKG Measurement Heart [id number] CT 140P59 [id number] <Conclusion> Sinus rhythm with occasional premature ventricular complexes Nonspecific ST abnormality Abnormal ECG
--- NOTE | 2018-03-28 02:47 | CARD ---
APPROVED REPORT Date of service: 03/27/2018 EXAM: Two-dimensional and M-mode echocardiogram with Doppler and color Doppler. Other Information Quality : GoodRhythm : INDICATION S/P CORONARY ARTERY STENT, MD RISK FACTORS Hypertension Hyperlipidemia Diabetes 2D DIMENSIONS IVSd0.9 (0.7-1.1cm)Aortic Root (2D)2.6 (2.0-3.7cm) LVDd4.1 (3.9-5.9cm)PWd1.2 (0.7-1.1cm) LA Rdymzf29 (18-58mL)LVDs2.6 (2.5-4.0cm) FS (%) 36.9 %LVEF (%)67.2 (>50%) LVEF (Thornton's)56 %IVC0.00 cm M-Mode DIMENSIONS Left Atrium (MM)2.92 (2.5-4.0cm)IVSd0.70 (0.7-1.1cm) Aortic Root2.34 (2.2-3.7cm)LVDd4.65 (4.0-5.6cm) Aortic Cusp Exc.0.94 (1.5-2.0cm)PWd0.85 (0.7-1.1cm) FS (%) 32 %LVDs3.16 (2.0-3.8cm) LVEF (%)60 (>50%) Mitral Valve MV E Xajwwjsc54.8cm/sMV A Gpxsshxn29.8cm/sE/A ratio0.6 TDI Lateral E' Peak V3.25cm/sMedial E' Peak V4.35cm/sE/Lateral E'16.9 E/Medial E'12.6 Tricuspid Valve TR Peak Fedlwuhy317dn/sTR Peak Gr.15cwOcZDGP95baEd LEFT VENTRICLE The left ventricle is normal size. There is normal left ventricular wall thickness. Left ventricle systolic function is normal. The Ejection Fraction is 65-70%. There is normal LV segmental wall motion. Tissue Doppler imaging reveals abnormal left ventricular diastolic dysfunction. RIGHT VENTRICLE The right ventricle is normal size. There is normal right ventricular wall thickness. The right ventricular systolic function is normal. ATRIA The left atrium size is normal. The right atrium size is normal. The interatrial septum is intact with no evidence for an atrial septal defect. AORTIC VALVE The aortic valve is normal in structure. No aortic regurgitation is present. There is no aortic valvular stenosis. There is no aortic valvular vegetation. MITRAL VALVE The mitral valve is normal in structure. There is no evidence of mitral valve prolapse. There is no mitral valve stenosis. Mitral regurgitation is mild. TRICUSPID VALVE The tricuspid valve is normal in structure. There is mild to moderate tricuspid regurgitation. Right ventricular systolic pressure is estimated at 30-40 mmHg. There is mild pulmonary hypertension. PULMONIC VALVE The pulmonic valve is not well visualized. There is no pulmonic valvular regurgitation. GREAT VESSELS The aortic root is normal in size. PERICARDIAL EFFUSION There is a small loculated anterior pericardial effusion. <Conclusion> Left ventricle systolic function is normal. The Ejection Fraction is 65-70%. Diastolic dysfunction. No aortic regurgitation is present. No aortic regurgitation is present. Mitral regurgitation is mild. There is mild to moderate tricuspid regurgitation. There is mild pulmonary hypertension. There is no pulmonic valvular regurgitation.
[2018-03-28 06:48] LABS: BASO % 0.6 % (0.0-2.0); EOS # 0.1 K/uL (0.0-0.7); EOS % 2.8 % (0.0-4.0); HEMOGLOBIN 13.5 g/dL (11.0-16.0); LYMPH # 1.3 K/uL (1.0-4.3); LYMPH % 24.6 % (20.0-40.0); MEAN CELL VOLUME 88.2 fL (81.0-99.0); MEAN CORPUSCULAR HEMOGLOBIN 29.3 pg (27.0-31.0); MEAN CORPUSCULAR HGB CONC 33.2 g/dL (33.0-37.0); MEAN PLATELET VOLUME 8.3 fL (7.2-11.7); MONO # 0.4 K/uL (0.0-0.8); MONO % 8.3 % (0.0-10.0); NEUT # 3.3 K/uL (1.8-7.0); NEUT % 63.7 % (50.0-75.0); NRBC % 0.1 % (0.0-2.0); RBC 4.62 Mil/uL (3.80-5.20); RED CELL DISTRIBUTION WIDTH 13.4 % (11.5-14.5); WHITE BLOOD COUNT 5.2 K/uL (4.8-10.8)
[2018-03-28 07:01] LABS: ALB/GLOB RATIO 1.3 (1.0-2.1); ALT/SGPT 22 U/L (9-52); AST/SGOT 24 U/L (14-36); BLOOD UREA NITROGEN 15 mg/dL (7-17); CALCIUM 8.3 mg/dl (8.6-10.4); GFR NON-AFRICAN AMERICAN > 60; INR 1.1; PROTHROMBIN TIME 11.9 SECONDS (9.7-12.2)
--- NOTE | 2018-03-28 09:23 | CP.PCM.PN ---
<Miriam Dao - Last Filed: 03/28/18 17:34> Subjective - Date & Time of Evaluation Date of Evaluation: 03/28/18 Time of Evaluation: 09:23 - Subjective Subjective: Progress note for Hospitalist service Patient seen and examined at bedside. She states she has mild intermittent chest pain when she takes a deep breath. She states she would like to get cleaned up this morning. Patient was made aware that she is to have a cath today. She denies any radiation of her pain into her neck, shortness of breath, palpitations, fevers, chills, headache, dizziness, lightheadedness, abdominal pain, nausea, vomiting, diarrhea, constipation, leg pain or leg swelling. Objective - Vital Signs/Intake and Output Vital Signs (last 24 hours): Temp Pulse Resp BP Pulse Ox 97.7 F 80 21 145/72 95 03/28/18 08:09 03/28/18 08:09 03/28/18 08:09 03/28/18 08:09 03/28/18 08:09 - Medications Medications: Current Medications Amlodipine Besylate (Norvasc) 10 mg PO DAILY [facility] Last Admin: 03/27/18 09:57 Dose: 10 mg Aspirin (Aspirin Chewable) 81 mg PO DAILY [facility] Last Admin: 03/27/18 09:57 Dose: 81 mg Donepezil HCl (Aricept) 10 mg PO HS [facility] Last Admin: 03/27/18 21:57 Dose: 10 mg Influenza Virus Vaccine (Fluzone Quad [id number]) 60 mcg IM .ONCE ONE Stop: 03/28/18 10:01 Metoprolol Succinate (Toprol Xl) 25 mg PO DAILY [facility] Last Admin: 03/27/18 09:57 Dose: 25 mg Pregabalin (Lyrica) 25 mg PO TID [facility] Last Admin: 03/27/18 18:10 Dose: 25 mg Rosuvastatin Calcium (Crestor) 10 mg PO HS [facility] Last Admin: 03/27/18 21:57 Dose: 10 mg - Labs Labs: 03/28/18 06:34 03/28/18 06:34 PT 11.9 SECONDS (9.7-12.2) 03/28/18 06:34 INR 1.1 03/28/18 06:34 APTT 31 SECONDS (21-34) 03/28/18 06:34 - Constitutional Appears: Well, No Acute Distress - Head Exam Head Exam: ATRAUMATIC, NORMOCEPHALIC - Eye Exam Eye Exam: EOMI - ENT Exam ENT Exam: Mucous Membranes Moist - Respiratory Exam Respiratory Exam: Clear to Ausculation Bilateral. absent: Rales, Rhonchi, Wheezes, Stridor - Cardiovascular Exam Cardiovascular Exam: REGULAR RHYTHM, +S1, +S2. absent: Gallop, Rubs, Murmur - GI/Abdominal Exam GI & Abdominal Exam: Soft, Normal Bowel Sounds. absent: Distended, Firm, Guarding, Rigid, Tenderness - Extremities Exam Extremities Exam: Normal Capillary Refill. absent: Calf Tenderness, Pedal Edema, Tenderness - Back Exam Back Exam: absent: CVA tenderness (L), CVA tenderness (R) - Neurological Exam Neurological Exam: Alert, Awake, Oriented x3 - Psychiatric Exam Psychiatric exam: Normal Affect, Normal Mood - Skin Skin Exam: Dry, Intact, Warm Assessment and Plan - Assessment and Plan (Free Text) Plan: Assessment/plan 77 year old female with history of NH s/p RCA stent, HTN, hyperlipidemia, arthritis, anemia, and dementia admitted for chest pain. Chest pain rule out ACS Hx NH with mid RCA stent placement 2014 - EKG: NSR at 91 bpm occasional PVCs, nonspecific ST abnormality - Troponin neg x3 - Lipid panel TG 96 Cholesterol 137 LDL 52 HDL 70 - hgb A1c 5.7 - TSH 1.40 - BNP 565 - Start Aspirin 81mg daily - ECHO: LV systolic function is normal. EF is 65 to 70%. Diastolic dysfunction. no aortic regurgitation, mild mitral regurgitation. mild to moderate tricuspid regurgitation. mild pulmonary hypertension. no pulmonic valvular regurgitation. - Cardiology, Dr. Joe consulted. Dr. Wolf covering for patient. - Patient initially declined cath, stating she would like to wait to know if cath is urgently necessary, however later agreed to cath. - As per Dr. Wolf, cath revealed patient has 60-70% stenosis of LAD and recommends medical management at this time. HTN - Metoprolol succinate 25mg HS - Amlodipine 10mg daily Hypercholesterolemia - Lipid panel TG 96 Cholesterol 137 LDL 52 HDL 70 - Crestor 10mg PO HS (home med) Hx Anemia - Hgb 13.5/Hct 40.7 - Continue to monitor Arthritis - Continue home med Lyrica 25mg PO TID Dementias - Continue home med Donepezil 10mg PO daily Prophylaxis - SCDs - Heparin 5000 Q8H held - GI prophylaxis not indicated - HHD Case discussed with Dr. Kristine Dao, PGY1 <Candace Carmona - Last Filed: 03/28/18 18:06> Objective - Vital Signs/Intake and Output Vital Signs (last 24 hours): Temp Pulse Resp BP Pulse Ox 98.1 F 64 20 125/70 98 03/28/18 15:00 03/28/18 15:00 03/28/18 15:00 03/28/18 15:00 03/28/18 15:00 - Medications Medications: Current Medications Acetaminophen (Tylenol 325mg Tab) 650 mg PO Q6 PRN PRN Reason: Pain, moderate (4-7) Amlodipine Besylate (Norvasc) 10 mg PO DAILY [facility] Last Admin: 03/28/18 10:16 Dose: 10 mg Aspirin (Aspirin Chewable) 81 mg PO DAILY [facility] Last Admin: 03/28/18 10:16 Dose: 81 mg Donepezil HCl (Aricept) 10 mg PO HS [facility] Last Admin: 03/27/18 21:57 Dose: 10 mg Sodium Chloride (Sodium Chloride 0.9%) 500 mls @ 50 mls/hr IV .Q10H [facility] Stop: 03/29/18 02:30 Metoprolol Succinate (Toprol Xl) 25 mg PO DAILY [facility] Last Admin: 03/28/18 10:16 Dose: 25 mg Pregabalin (Lyrica) 25 mg PO TID [facility] Last Admin: 03/28/18 10:16 Dose: 25 mg Rosuvastatin Calcium (Crestor) 10 mg PO HS [facility] Last Admin: 03/27/18 21:57 Dose: 10 mg - Labs Labs: 03/28/18 06:34 03/28/18 06:34 PT 11.9 SECONDS (9.7-12.2) 03/28/18 06:34 INR 1.1 03/28/18 06:34 APTT 31 SECONDS (21-34) 03/28/18 06:34 Attending/Attestation - Attestation I have personally seen and examined this patient.: Yes I have fully participated in the care of the patient.: Yes I have reviewed all pertinent clinical information, including history, physical exam and plan: Yes Notes (Text): seen and examined this morning,patient was comfortable on bed. no chest pain s/p cath by Dr Wolf Reported 60-70% stenosis of LAD and recommends medical management at this time. continue statin,asprin and metoprolol Possible discharge tomorrow after discuss with Dr Wolf/Dr gamble I agree with the resident's documentation
[2018-03-28] MEDS ORDERED: Influenza Vaccine 60 MCG/0.5 ML SYR (3 yr & up) IM ONE (10:00)
[2018-03-28] MEDS: Metoprolol Succinate 25 mg XL Tab PO SCH (10:16)
--- NOTE | 2018-03-28 14:54 | CP.PCM.PN ---
Subjective - Date & Time of Evaluation Date of Evaluation: 03/28/18 Time of Evaluation: 14:52 - Subjective Subjective: Patient with CAD and angina. Have refused cardiac catheterization for now. Want sto discuss with Dr. Joe first. Objective - Vital Signs/Intake and Output Vital Signs (last 24 hours): Temp Pulse Resp BP Pulse Ox 97.7 F 75 21 145/72 95 03/28/18 08:09 03/28/18 11:30 03/28/18 08:09 03/28/18 08:09 03/28/18 08:09 - Medications Medications: Current Medications Acetaminophen (Tylenol 325mg Tab) 650 mg PO Q6 PRN PRN Reason: Pain, moderate (4-7) Amlodipine Besylate (Norvasc) 10 mg PO DAILY [facility] Last Admin: 03/28/18 10:16 Dose: 10 mg Aspirin (Aspirin Chewable) 81 mg PO DAILY [facility] Last Admin: 03/28/18 10:16 Dose: 81 mg Donepezil HCl (Aricept) 10 mg PO [facility] Last Admin: 03/27/18 21:57 Dose: 10 mg Metoprolol Succinate (Toprol Xl) 25 mg PO DAILY [facility] Last Admin: 03/28/18 10:16 Dose: 25 mg Pregabalin (Lyrica) 25 mg PO TID [facility] Last Admin: 03/28/18 10:16 Dose: 25 mg Rosuvastatin Calcium (Crestor) 10 mg PO HS [facility] Last Admin: 03/27/18 21:57 Dose: 10 mg - Labs Labs: 03/28/18 06:34 03/28/18 06:34 PT 11.9 SECONDS (9.7-12.2) 03/28/18 06:34 INR 1.1 03/28/18 06:34 APTT 31 SECONDS (21-34) 03/28/18 06:34 - Respiratory Exam Respiratory Exam: NORMAL BREATHING PATTERN - Cardiovascular Exam Cardiovascular Exam: REGULAR RHYTHM Assessment and Plan (1) Angina at rest Assessment & Plan: Maximize medical management. Further for-up later. Discussed with resident. Status: Acute (2) Hypertension Status: Acute
[2018-03-28] MEDS ORDERED: Midazolam 2 MG/2 ML VIAL ONE ×2 (16:08→16:10)
[2018-03-28] MEDS ORDERED: Iohexol 350mg/ml 100 ML ONE (16:08)
[2018-03-28] MEDS ORDERED: Lidocaine 2% MPF (5 ml) Inj ONE (16:20)
[2018-03-28] MEDS ORDERED: DiphenhydrAMINE 50 mg/ml Inj ONE (16:21)
[2018-03-28] MEDS ORDERED: Sodium Chloride 0.9% 500 ML IV SCH (16:30)
--- NOTE | 2018-03-28 23:55 | CARD ---
APPROVED REPORT Date of service: 03/27/2018 EKG Measurement Heart [id number] NV 150P65 [id number] <Conclusion> Normal sinus rhythm Septal infarct, age undetermined Abnormal ECG
--- NOTE | 2018-03-28 23:57 | CARD ---
APPROVED REPORT Date of service: 03/27/2018 EKG Measurement Heart [id number] VT 160P73 [id number] <Conclusion> Sinus rhythm with occasional premature ventricular complexes Otherwise normal ECG
[2018-03-29 04:11] VITALS: TEMP 98.5; O2SAT 96
[2018-03-29 04:28] VITALS: PULSE 61
[2018-03-29 06:40] LABS: BASO % 0.6 % (0.0-2.0); EOS # 0.1 K/uL (0.0-0.7); EOS % 1.5 % (0.0-4.0); HEMOGLOBIN 13.2 g/dL (11.0-16.0); LYMPH # 1.1 K/uL (1.0-4.3); LYMPH % 20.7 % (20.0-40.0); MEAN CELL VOLUME 88.2 fL (81.0-99.0); MEAN CORPUSCULAR HEMOGLOBIN 29.8 pg (27.0-31.0); MEAN CORPUSCULAR HGB CONC 33.8 g/dL (33.0-37.0); MEAN PLATELET VOLUME 8.5 fL (7.2-11.7); MONO # 0.4 K/uL (0.0-0.8); NEUT # 3.6 K/uL (1.8-7.0); NEUT % 69.2 % (50.0-75.0); NRBC % 0.1 % (0.0-2.0); RBC 4.44 Mil/uL (3.80-5.20); RED CELL DISTRIBUTION WIDTH 13.5 % (11.5-14.5); WHITE BLOOD COUNT 5.2 K/uL (4.8-10.8)
[2018-03-29 06:53] LABS: ALB/GLOB RATIO 1.1 (1.0-2.1); ALBUMIN 3.5 g/dL (3.5-5.0); ALT/SGPT 23 U/L (9-52); AST/SGOT 24 U/L (14-36); BLOOD UREA NITROGEN 16 mg/dL (7-17); CALCIUM 8.2 mg/dl (8.6-10.4); GFR NON-AFRICAN AMERICAN > 60
[2018-03-29 09:30] VITALS: BP 137/74; RESP 71
[2018-03-29] MEDS: Metoprolol Succinate 25 mg XL Tab PO SCH (09:32)
--- NOTE | 2018-03-29 11:15 | CP.PCM.DIS ---
<Otis Patel - Last Filed: 03/29/18 16:42> Provider - Provider Date of Admission: 03/26/18 21:58 Attending physician: Manuel Wright MD Consults: Cardiology - Dr. Wolf/Dr. Joe. Time Spent in preparation of Discharge (in minutes): 35 Diagnosis - Discharge Diagnosis (1) S/P cardiac cath Status: Resolved (2) Chest pain Status: Resolved Hospital Course - Lab Results Lab Results: Most Recent Lab Values WBC 5.2 K/uL (4.8-10.8) 03/29/18 06:28 RBC 4.44 Mil/uL (3.80-5.20) 03/29/18 06:28 Hgb 13.2 g/dL (11.0-16.0) 03/29/18 06:28 Hct 39.1 % (34.0-47.0) 03/29/18 06:28 MCV 88.2 fL (81.0-99.0) 03/29/18 06:28 MCH 29.8 pg (27.0-31.0) 03/29/18 06:28 MCHC 33.8 g/dL (33.0-37.0) 03/29/18 06:28 RDW 13.5 % (11.5-14.5) 03/29/18 06:28 Plt Count 227 K/uL (130-400) 03/29/18 06:28 MPV 8.5 fL (7.2-11.7) 03/29/18 06:28 Neut % (Auto) 69.2 % (50.0-75.0) 03/29/18 06:28 Lymph % (Auto) 20.7 % (20.0-40.0) 03/29/18 06:28 [place] % (Auto) 8.0 % (0.0-10.0) 03/29/18 06:28 Eos % (Auto) 1.5 % (0.0-4.0) 03/29/18 06:28 Baso % (Auto) 0.6 % (0.0-2.0) 03/29/18 06:28 Neut # (Auto) 3.6 K/uL (1.8-7.0) 03/29/18 06:28 Lymph # (Auto) 1.1 K/uL (1.0-4.3) 03/29/18 06:28 [place] # (Auto) 0.4 K/uL (0.0-0.8) 03/29/18 06:28 Eos # (Auto) 0.1 K/uL (0.0-0.7) 03/29/18 06:28 Baso # (Auto) 0.0 K/uL (0.0-0.2) 03/29/18 06:28 PT 11.9 SECONDS (9.7-12.2) 03/28/18 06:34 INR 1.1 03/28/18 06:34 APTT 31 SECONDS (21-34) 03/28/18 06:34 Sodium 139 mmol/L (132-148) 03/29/18 06:28 Potassium 3.8 mmol/L (3.6-5.2) 03/29/18 06:28 Chloride 107 mmol/L (98-107) 03/29/18 06:28 Carbon Dioxide 24 mmol/L (22-30) 03/29/18 06:28 Anion Gap 12 (10-20) 03/29/18 06:28 BUN 16 mg/dL (7-17) 03/29/18 06:28 Creatinine 0.8 mg/dL (0.7-1.2) 03/29/18 06:28 Est GFR ( Amer) > 60 03/29/18 06:28 Est GFR (Non-Af Amer) > 60 03/29/18 06:28 Random Glucose 93 mg/dL (65-105) 03/29/18 06:28 Hemoglobin A1c 5.7 % (4.2-6.5) 03/27/18 07:37 Calcium 8.2 mg/dl (8.6-10.4) L 03/29/18 06:28 Phosphorus 3.5 mg/dL (2.5-4.5) 03/29/18 06:28 Magnesium 2.0 mg/dL (1.6-2.3) 03/29/18 06:28 Total Bilirubin 0.4 mg/dL (0.2-1.3) 03/29/18 06:28 AST 24 U/L (14-36) 03/29/18 06:28 ALT 23 U/L (9-52) 03/29/18 06:28 Alkaline Phosphatase 71 U/L (38-126) 03/29/18 06:28 Total Creatine Kinase 144 U/L (30-135) H 03/27/18 08:44 CK-MB (Mass) 1.71 ng/mL (0.0-3.38) 03/27/18 08:44 Troponin I < 0.0120 ng/mL (0.00-0.120) 03/27/18 08:44 NT-Pro-B Natriuret Pep 565 pg/mL (0-900) 03/27/18 07:37 Total Protein 6.6 g/dL (6.3-8.3) 03/29/18 06:28 Albumin 3.5 g/dL (3.5-5.0) 03/29/18 06:28 Globulin 3.1 gm/dL (2.2-3.9) 03/29/18 06:28 Albumin/Globulin Ratio 1.1 (1.0-2.1) 03/29/18 06:28 Triglycerides 96 mg/dL (0-149) D 03/27/18 07:37 Cholesterol 137 mg/dL (0-199) 03/27/18 07:37 LDL Cholesterol Direct 52 mg/dL (0-129) 03/27/18 07:37 HDL Cholesterol 70 mg/dL (30-70) 03/27/18 07:37 TSH 3rd Generation 1.40 mIU/L (0.46-4.68) 03/27/18 07:37 - Hospital Course Hospital Course: 77 year old female with PMHx of NV, HTN, hyperlipidemia, arthritis, anemia, and dementia admitted for chest pain. EKG on admission was NSR @ 91bpm with occasional PVC & nonspecific ST abnormality. Troponoins were negative x 3. Cardiology was consulted on the case. Patient underwent cardiac catherization which showed. 60-70% LAD. Cardiology recommended medical management. Patient to follow up with Dr. Joe on Saturday (03/31/18) and her primary medical physician. She is to continue all her home medications. No new medications were added during this hospital course. She is aware of plan and medications. Troponin neg x3 - Lipid panel TG 96 Cholesterol 137 LDL 52 HDL 70 - hgb A1c 5.7 - TSH 1.40 - BNP 565 - Start Aspirin 81mg daily - ECHO: LV systolic function is normal. EF is 65 to 70%. Diastolic dysfunction. no aortic regurgitation, mild mitral regurgitation. mild to moderate tricuspid regurgitation. mild pulmonary hypertension. no pulmonic valvular regurgitation. Discharge Exam - Head Exam Head Exam: ATRAUMATIC, NORMOCEPHALIC - Eye Exam Eye Exam: EOMI, Normal appearance - ENT Exam ENT Exam: Mucous Membranes Moist - Respiratory Exam Respiratory Exam: Clear to PA & Lateral. absent: Accessory Muscle Use - Cardiovascular Exam Cardiovascular Exam: RRR, +S1, +S2 - GI/Abdominal Exam GI & Abdominal Exam: Normal Bowel Sounds, Soft. absent: Tenderness - Extremities Exam Extremities exam: normal capillary refill - Neurological Exam Neurological exam: Alert, Oriented x3 - Psychiatric Exam Psychiatric exam: Normal Affect, Normal Mood - Additional Findings Additional findings: Dressing in Right proximal lower extremity (Over Femoral Vein catheter access site) Clean, dry, intact. Slightly tender to palpation. Discharge Plan - Follow Up Plan Condition: STABLE Disposition: HOME/ ROUTINE Instructions: Cardiac Catheterization (DC), Cholecystitis (DC), Cholecystitis (GEN), Acute Abdominal Pain (DC), Acute Abdominal Pain (GEN) Additional Instructions: Follow up with your PMD within 7 days of discharge Follow up with Dr. Joe on Saturday03/31/18 If symptoms return, please return to the E.[facility] <Candace Carmona - Last Filed: 03/29/18 17:51> Provider - Provider Date of Admission: 03/26/18 21:58 Attending physician: Manuel Wright MD Hospital Course - Lab Results Lab Results: Most Recent Lab Values WBC 5.2 K/uL (4.8-10.8) 03/29/18 06:28 RBC 4.44 Mil/uL (3.80-5.20) 03/29/18 06:28 Hgb 13.2 g/dL (11.0-16.0) 03/29/18 06:28 Hct 39.1 % (34.0-47.0) 03/29/18 06:28 MCV 88.2 fL (81.0-99.0) 03/29/18 06:28 MCH 29.8 pg (27.0-31.0) 03/29/18 06:28 MCHC 33.8 g/dL (33.0-37.0) 03/29/18 06:28 RDW 13.5 % (11.5-14.5) 03/29/18 06:28 Plt Count 227 K/uL (130-400) 03/29/18 06:28 MPV 8.5 fL (7.2-11.7) 03/29/18 06:28 Neut % (Auto) 69.2 % (50.0-75.0) 03/29/18 06:28 Lymph % (Auto) 20.7 % (20.0-40.0) 03/29/18 06:28 [place] % (Auto) 8.0 % (0.0-10.0) 03/29/18 06:28 Eos % (Auto) 1.5 % (0.0-4.0) 03/29/18 06:28 Baso % (Auto) 0.6 % (0.0-2.0) 03/29/18 06:28 Neut # (Auto) 3.6 K/uL (1.8-7.0) 03/29/18 06:28 Lymph # (Auto) 1.1 K/uL (1.0-4.3) 03/29/18 06:28 [place] # (Auto) 0.4 K/uL (0.0-0.8) 03/29/18 06:28 Eos # (Auto) 0.1 K/uL (0.0-0.7) 03/29/18 06:28 Baso # (Auto) 0.0 K/uL (0.0-0.2) 03/29/18 06:28 PT 11.9 SECONDS (9.7-12.2) 03/28/18 06:34 INR 1.1 03/28/18 06:34 APTT 31 SECONDS (21-34) 03/28/18 06:34 Sodium 139 mmol/L (132-148) 03/29/18 06:28 Potassium 3.8 mmol/L (3.6-5.2) 03/29/18 06:28 Chloride 107 mmol/L (98-107) 03/29/18 06:28 Carbon Dioxide 24 mmol/L (22-30) 03/29/18 06:28 Anion Gap 12 (10-20) 03/29/18 06:28 BUN 16 mg/dL (7-17) 03/29/18 06:28 Creatinine 0.8 mg/dL (0.7-1.2) 03/29/18 06:28 Est GFR ( Amer) > 60 03/29/18 06:28 Est GFR (Non-Af Amer) > 60 03/29/18 06:28 Random Glucose 93 mg/dL (65-105) 03/29/18 06:28 Hemoglobin A1c 5.7 % (4.2-6.5) 03/27/18 07:37 Calcium 8.2 mg/dl (8.6-10.4) L 03/29/18 06:28 Phosphorus 3.5 mg/dL (2.5-4.5) 03/29/18 06:28 Magnesium 2.0 mg/dL (1.6-2.3) 03/29/18 06:28 Total Bilirubin 0.4 mg/dL (0.2-1.3) 03/29/18 06:28 AST 24 U/L (14-36) 03/29/18 06:28 ALT 23 U/L (9-52) 03/29/18 06:28 Alkaline Phosphatase 71 U/L (38-126) 03/29/18 06:28 Total Creatine Kinase 144 U/L (30-135) H 03/27/18 08:44 CK-MB (Mass) 1.71 ng/mL (0.0-3.38) 03/27/18 08:44 Troponin I < 0.0120 ng/mL (0.00-0.120) 03/27/18 08:44 NT-Pro-B Natriuret Pep 565 pg/mL (0-900) 03/27/18 07:37 Total Protein 6.6 g/dL (6.3-8.3) 03/29/18 06:28 Albumin 3.5 g/dL (3.5-5.0) 03/29/18 06:28 Globulin 3.1 gm/dL (2.2-3.9) 03/29/18 06:28 Albumin/Globulin Ratio 1.1 (1.0-2.1) 03/29/18 06:28 Triglycerides 96 mg/dL (0-149) D 03/27/18 07:37 Cholesterol 137 mg/dL (0-199) 11/08/18 07:37 LDL Cholesterol Direct 52 mg/dL (0-129) 03/27/18 07:37 HDL Cholesterol 70 mg/dL (30-70) 03/27/18 07:37 TSH 3rd Generation 1.40 mIU/L (0.46-4.68) 03/27/18 07:37 Attending/Attestation - Attestation I have personally seen and examined this patient.: Yes I have fully participated in the care of the patient.: Yes I have reviewed all pertinent clinical information, including history, physical exam and plan: Yes Notes (Text): Spoke to DR Wolf we will discharge and ask to follow DR Flor as an out pt spoke to daughter at bedside
--- NOTE | 2018-03-29 12:35 | CATH ---
APPROVED REPORT Date of service: 03/28/2018 Procedure(s) performed: Cardiac catheterization. HISTORY The patient is a 77 year-old female with a history of : previous DC, coronary artery disease, hypertension, dyslipidemia. INDICATION The indication(s) include : unstable angina . CASE TECHNIQUE The patient was brought electively to the Cardiac Catheterization Laboratory in a fasting state and was prepped and draped in a sterile manner. The right femoral groin was infiltrated with 2% Lidocaine subcutaneous anesthesia. The left coronary system was accessed and visualized with a 6F JL4 catheter. The right coronary system was accessed and visualized with a 6F JR4 catheter. The left ventricle was accessed and visualized with a 6F Pig tail catheter. Left ventriculogram was performed in INDONESIAN projection. Closure device was deployed with a Minx Fr 6 without any complications. Vessel Analysis The patient's coronary anatomy is right dominant. The left main coronary artery is a medium size vessel without significant stenosis. The left anterior descending artery is a medium size vessel . The first diagonal branch is a medium size vessel . There is a 50% stenosis . There is a mid segment with 60-70%. The circumflex artery is a medium size vessel free of disease. The right coronary artery is a medium size vessel . Patent stent. Left Ventricle The left ventricle is Normal in size with Normal contractility. The left ventricular ejection fraction is estimated to be 55%. Conclusion Normal LM. LAD mid vessel 60-70%. LCx is normal. Patent stent in RCA. Normal LV systolic function. Recommendations Meximize medical management with FFR of LAD and D1.
== END 2018-03-29 13:33 | disposition home or self-care (01) ==
LOC: C.ER 17:21 → C.6T 21:58
PROVIDERS: ADMIT Family Medicine; ATTEND Family Medicine
DX: I25.110 Atherosclerotic heart disease of native coronary artery with unstable angina pectoris (principal); I10 Essential (primary) hypertension; I49.3 Ventricular premature depolarization; I25.2 Old myocardial infarction; D64.9 Anemia, unspecified; E78.00 Pure hypercholesterolemia, unspecified; E78.5 Hyperlipidemia, unspecified; F03.90 Unspecified dementia, unspecified severity, without behavioral disturbance, psychotic disturbance, mood disturbance, and anxiety; K21.9 Gastro-esophageal reflux disease without esophagitis; M19.90 Unspecified osteoarthritis, unspecified site; Z87.891 Personal history of nicotine dependence; Z95.5 Presence of coronary angioplasty implant and graft
CPT/HCPCS: 36415; 71045; 80053; 80061; 83036; 83735; 83880; 84100; 84443; 84484; 85025; 85610; 85730; 93005; 93306; 93458; 99152; 99153; 99285; C1760; C1769; C1887; C1893; G0378; J1200; J1644; J2001; J2250; J3010; J3480; Q9967